=== PATIENT | male | born 1930 | race Caucasian/White ===

== ENCOUNTER → 2016-12-04 | Outpatient (CLI) | payer MEDICARE, BC ==
[~2016-12-04] MED LIST: ACET325S8 PO; AMIO200T PO; ASPI-99 PO; AZIT250T74 PO; BUME1TAB PO; CARV3.125 PO; CETI10 PO; COMMODE 3:1; DOCU1CAP39 PO; FLON0.053; LISI2.5T3 PO; METO25 PO; METR-1 PO; MILKSUS5 PO; POLY17S PO; POTA-243 PO; PRED10 PO; PROT40TA PO; ROSU5 PO; SALI1SPR8; SUPETAB30 PO; TAMS0.4C67 PO; ZOLP5TAB3 PO
--- NOTE | 2016-12-07 08:29 | RSPPFT ---
DATE OF PROCEDURE: 12/04/16 COMMENTS: The forced vital capacity, FEV1, FEV1/FVC ratio and FEF 25-75 are all normal. IMPRESSION: This is a normal spirometry
== END ==
LOC: HRSP 09:35
PROVIDERS: ATTEND Family Medicine
DX: R06.00 Dyspnea, unspecified (principal)
CPT/HCPCS: 94060; 94729

== ENCOUNTER 2017-12-27 21:38 | Inpatient (IN) ==
--- NOTE | 2017-12-27 22:54 | ED ---
HPI General Chief Complaint: Fall Stated Complaint: L leg/hip Time Seen by Provider: 12/27/17 22:09 Source: patient and family (Son) Mode of arrival: other (In the car. Son helped him. Patient is having hard time walking.) Limitations: no limitations History of Present Illness HPI Narrative: Male was in the [facility] when as per him his left hip just gave way and he fell. His son was there and said he was having hard time standing up and complaining of left hip pain. Patient denies hitting his head. He was also complaining of some numbness on that side of his hip. Vital signs were relatively stable. Patient had a glass of scotch before going to [facility]. His son drove him to the hospital. complaint: Reports fall Onset (ago): minute(s) Fall from: standing Fall witnessed: yes, by family Prolonged down time: no Related Data Home Medications Medication Instructions Recorded Confirmed acetaminophen [Tylenol] 650 mg PO Q4H PRN 12/27/17 12/27/17 aspirin [Aspir-81] 81 mg PO DAILY 12/27/17 12/27/17 diclofenac sodium [Voltaren] 2 g TOPICAL QID 12/27/17 12/27/17 fluticasone [Flonase Allergy 2 spray INTRANASAL DAILY 12/27/17 12/27/17 Relief] oxybutynin chloride 15 mg PO DAILY 12/27/17 12/27/17 rosuvastatin [Crestor] 10 mg PO DAILY 12/27/17 12/27/17 sodium chloride [Saline Nasal] 1 spray INTRANASAL Q4H 12/27/17 12/27/17 vit D3-folic [id number] 1 tab PO DAILY 12/27/17 12/27/17 zolpidem [Ambien] 2.5 mg PO DAILY PRN 12/27/17 12/27/17 Allergies Allergy/AdvReac Type Severity Reaction Status Date / Time penicillin G Allergy Severe HIVES Verified 12/27/17 22:15 Review of Systems ROS: all other systems reviewed are negative Musculoskeletal Reports limited range of motion [facility] Medical History Medical History History of prostate cancer (Acute) Hx of fall (Acute) Hx of myocardial infarction (Acute) Hyperlipidemia (Acute) Surgical History Surgical History Hx of CABG (Acute) Social History Social History Substance History: No History of Abuse and Active Abuse Second Hand Smoke Exposure: No Smoking Status: Former smoker Tobacco Type: Cigarettes How Often Do You Have a Drink Containing Alcohol: 4 or more times a week Hx Recent Travel: No Recent Travel in [facility] within the Last 8 Weeks: No Recent Out of Country Travel within the Last 8 Weeks: No Immunization History Tetanus Immunization: <5 Years Exam Narrative Exam Narrative: GENERAL: Awake, alert, elderly, mild distress SKIN: Focused skin assessment warm/dry. HEAD: Atraumatic. Normocephalic. EYES: Pupils equal and round. No scleral icterus. No injection or drainage. ENT: No nasal bleeding or discharge. Mucous membranes pink and moist. NECK: Trachea midline. No JVD. CARDIOVASCULAR: Regular rate and rhythm. No murmur appreciated. RESPIRATORY: No accessory muscle use. Clear to auscultation. Breath sounds equal bilaterally. GASTROINTESTINAL: Abdomen soft, non-tender, nondistended. Hepatic and splenic margins not palpable. MUSCULOSKELETAL: No obvious deformities. No clubbing. No cyanosis. No edema. NEUROLOGICAL: Awake and alert. No obvious cranial nerve deficits. Motor grossly within normal limits. Normal speech. Decreased range of motion at the left hip joint due to the pain. No leg length discrepancy PSYCHIATRIC: Appropriate mood and affect; insight and judgment normal. Course Initial Documented Vital Signs Temperature 97.5 F L 12/27/17 21:54 Pulse Rate 55 L 12/27/17 21:54 Respiratory Rate 18 12/27/17 21:54 Blood Pressure 176/81 H 12/27/17 21:54 Pulse Oximetry 97 12/27/17 21:54 Last Documented Vital Signs Temperature 97.6 F 12/30/17 04:00 Pulse Rate 64 12/30/17 04:00 Respiratory Rate 16 12/30/17 04:00 Blood Pressure 117/57 L 12/30/17 04:00 Pulse Oximetry 96 12/30/17 04:00 Medical Decision Making MDM Narrative Medical decision making narrative: 12:20 AM blood test results are back and within acceptable limit. Alcohol level is 75 which corresponds to the drink he had prior to going to [facility]. X-ray shows intertrochanter hip fracture. Patient will be admitted to the hospitalist. Medical Screen Exam Complete: Yes Emergency Medical Condition: Yes Lab Data Result diagrams: 12/27/17 22:50 12/29/17 06:44 Lab Results 12/27/17 12/27/17 12/27/17 Range/Units 22:50 22:50 22:50 WBC 8.7 (4.0-11.0) th/mm3 RBC 4.47 L (4.50-5.90) mil/mm3 Hgb 14.2 (13.0-17.0) gm/dL Hct 42.0 (39.0-51.0) % MCV 93.8 (80.0-100.0) fL MCH 31.8 (27.0-34.0) pg MCHC 33.9 (32.0-36.0) % RDW 13.3 (11.6-17.2) % Plt Count 133 L (150-450) th/mm3 MPV 8.7 (7.0-11.0) fL Neut % (Auto) 56.2 (16.0-70.0) % Lymph % (Auto) 31.4 (9.0-44.0) % Webb % (Auto) 9.0 H (0.0-8.0) % Eos % (Auto) 3.1 (0.0-4.0) % Baso % (Auto) 0.3 (0.0-2.0) % Neut # (Auto) 4.9 (1.8-7.7) th/mm3 Lymph # (Auto) 2.7 (1.0-4.8) th/mm3 Webb # (Auto) 0.8 (0.0-0.9) th/mm3 Eos # (Auto) 0.3 (0.0-0.4) th/mm3 Baso # (Auto) 0.0 (0.0-0.2) th/mm3 WBC Differential . Differential Comment Auto diff final PT 9.9 (9.8-11.6) sec INR 1.0 Ratio APTT 25.1 (24.3-30.1) sec Sodium 143 (136-145) meq/L Potassium 4.2 (3.5-5.1) meq/L Chloride 110 H (98-107) meq/L Carbon Dioxide 25.3 (21.0-32.0) meq/L Anion Gap 8 (5-15) meq/L BUN 23 H (7-18) mg/dL Creatinine 1.43 H (0.60-1.30) mg/dL Estimated GFR 47 L (>89) mL/min Random Glucose 114 H (74-106) mg/dL Calcium 8.6 (8.5-10.1) mg/dL Phosphorus (2.5-4.9) mg/dL Magnesium (1.5-2.5) mg/dL Total Creatine Kinase 78 (39-308) U/L Troponin I Less than 0.02 L (0.02-0.05) ng/mL Urine Color (Yellw/Straw) Urine Clarity (Clear) Urine pH (5.0-8.5) Ur Specific [place] (1.002-1.035) Urine Protein (Neg-Trace) mg/dL Urine Glucose (UA) (Negative) mg/dL Urine Ketones (Negative) mg/dL Urine Occult Blood (Negative) Urine Nitrate (Negative) Urine Bilirubin (Negative) Urine Urobilinogen (Less than 2) mg/dL Ur Leukocyte Esterase (Negative) Urine RBC (0-3) /hpf Urine WBC (0-5) /hpf Hyaline Casts (0-3) /lpf Urine Mucus (Occasional) /lpf Micro UA Comment Ur Microscopic Review Urine Culture Comments Serum Alcohol 76 H (0-5) mg/dL 12/27/17 12/28/17 12/28/17 Range/Units 23:45 04:04 11:08 WBC (4.0-11.0) th/mm3 RBC (4.50-5.90) mil/mm3 Hgb (13.0-17.0) gm/dL Hct (39.0-51.0) % MCV (80.0-100.0) fL MCH (27.0-34.0) pg MCHC (32.0-36.0) % RDW (11.6-17.2) % Plt Count (150-450) th/mm3 MPV (7.0-11.0) fL Neut % (Auto) (16.0-70.0) % Lymph % (Auto) (9.0-44.0) % Webb % (Auto) (0.0-8.0) % Eos % (Auto) (0.0-4.0) % Baso % (Auto) (0.0-2.0) % Neut # (Auto) (1.8-7.7) th/mm3 Lymph # (Auto) (1.0-4.8) th/mm3 Webb # (Auto) (0.0-0.9) th/mm3 Eos # (Auto) (0.0-0.4) th/mm3 Baso # (Auto) (0.0-0.2) th/mm3 WBC Differential Differential Comment PT (9.8-11.6) sec INR Ratio APTT (24.3-30.1) sec Sodium (136-145) meq/L Potassium (3.5-5.1) meq/L Chloride (98-107) meq/L Carbon Dioxide (21.0-32.0) meq/L Anion Gap (5-15) meq/L BUN (7-18) mg/dL Creatinine (0.60-1.30) mg/dL Estimated GFR (>89) mL/min Random Glucose (74-106) mg/dL Calcium (8.5-10.1) mg/dL Phosphorus 2.8 (2.5-4.9) mg/dL Magnesium (1.5-2.5) mg/dL Total Creatine Kinase 58 (39-308) U/L Troponin I 0.04 0.04 (0.02-0.05) ng/mL Urine Color Yellow (Yellw/Straw) Urine Clarity Hazy H (Clear) Urine pH 5.0 (5.0-8.5) Ur Specific [place] 1.011 (1.002-1.035) Urine Protein Negative (Neg-Trace) mg/dL Urine Glucose (UA) Negative (Negative) mg/dL Urine Ketones Negative (Negative) mg/dL Urine Occult Blood Negative (Negative) Urine Nitrate Negative (Negative) Urine Bilirubin Negative (Negative) Urine Urobilinogen Less than 2 (Less than 2) mg/dL Ur Leukocyte Esterase Negative (Negative) Urine RBC 2 (0-3) /hpf Urine WBC 1 (0-5) /hpf Hyaline Casts 5 (0-3) /lpf Urine Mucus Few H (Occasional) /lpf Micro UA Comment Culture not ind Ur Microscopic Review Not Reportable Urine Culture Comments Culture not ind Serum Alcohol (0-5) mg/dL 12/29/17 Range/Units 06:44 WBC (4.0-11.0) th/mm3 RBC (4.50-5.90) mil/mm3 Hgb (13.0-17.0) gm/dL Hct (39.0-51.0) % MCV (80.0-100.0) fL MCH (27.0-34.0) pg MCHC (32.0-36.0) % RDW (11.6-17.2) % Plt Count (150-450) th/mm3 MPV (7.0-11.0) fL Neut % (Auto) (16.0-70.0) % Lymph % (Auto) (9.0-44.0) % Webb % (Auto) (0.0-8.0) % Eos % (Auto) (0.0-4.0) % Baso % (Auto) (0.0-2.0) % Neut # (Auto) (1.8-7.7) th/mm3 Lymph # (Auto) (1.0-4.8) th/mm3 Webb # (Auto) (0.0-0.9) th/mm3 Eos # (Auto) (0.0-0.4) th/mm3 Baso # (Auto) (0.0-0.2) th/mm3 WBC Differential Differential Comment PT (9.8-11.6) sec INR Ratio APTT (24.3-30.1) sec Sodium 139 (136-145) meq/L Potassium 3.9 (3.5-5.1) meq/L Chloride 106 (98-107) meq/L Carbon Dioxide 25.0 (21.0-32.0) meq/L Anion Gap 8 (5-15) meq/L BUN 19 H (7-18) mg/dL Creatinine 1.12 (0.60-1.30) mg/dL Estimated GFR 62 L (>89) mL/min Random Glucose 115 H (74-106) mg/dL Calcium 8.4 L (8.5-10.1) mg/dL Phosphorus (2.5-4.9) mg/dL Magnesium 2.2 (1.5-2.5) mg/dL Total Creatine Kinase (39-308) U/L Troponin I (0.02-0.05) ng/mL Urine Color (Yellw/Straw) Urine Clarity (Clear) Urine pH (5.0-8.5) Ur Specific [place] (1.002-1.035) Urine Protein (Neg-Trace) mg/dL Urine Glucose (UA) (Negative) mg/dL Urine Ketones (Negative) mg/dL Urine Occult Blood (Negative) Urine Nitrate (Negative) Urine Bilirubin (Negative) Urine Urobilinogen (Less than 2) mg/dL Ur Leukocyte Esterase (Negative) Urine RBC (0-3) /hpf Urine WBC (0-5) /hpf Hyaline Casts (0-3) /lpf Urine Mucus (Occasional) /lpf Micro UA Comment Ur Microscopic Review Urine Culture Comments Serum Alcohol (0-5) mg/dL Imaging Data Radiologist's impression: Femur X-Ray 12/27/17 22:36 CONCLUSION: Intertrochanteric fracture of the left hip. Pelvis X-Ray 12/27/17 22:36 CONCLUSION: Intertrochanteric fracture of the left hip Head CT 12/27/17 22:37 CONCLUSION: 1. No acute findings in the brain. 2. Bilateral lacunar infarcts and areas of decreased attenuation in the supratentorial white matter suggesting ischemic etiology. . Hip X-Ray 12/29/17 00:00 CONCLUSION: Satisfactory operative appearance Discharge Plan Discharge Disposition Patient Disposition: 30 Still Patient Physicians Team ED Provider: Lopez Horn Primary Care Provider: Jose Rodas Attending Provider: Jose Rodas Other Providers: Ashley Correia ; Lizabeth Mejia Status ED Status: Left Department Discharge Information Discharge Date/Time: 12/28/17 01:08
--- NOTE | 2017-12-27 22:59 | XR ---
EXAM DATE: 12/27/2017 10:56 PM EDT AGE/SEX: 87 years / Male INDICATIONS: Pain from fall on left side, CLINICAL DATA: This is the patient's initial encounter. Patient reports that signs and symptoms have been present for 1 day and indicates a pain score of 10/10. MEDICAL/SURGICAL HISTORY: None. . Pelvic surgery, unspecified. COMPARISON: [facility], XR HIP W/ AP PELVIS, BILATERAL, 08/12/2014. . FINDINGS: Examination of the pelvis demonstrates intertrochanteric fracture of the left hip. 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 Prosthetic seeds project over the pubic symphysis. CONCLUSION: Intertrochanteric fracture of the left hip Electronically signed by: Carlos Alberto Anthony MD 12/27/2017 10:58 PM EDT
[2017-12-27] MEDS ORDERED: Sodium Chlor 0.9% Inj 500 ML IV.SIG SCH (23:00)
--- NOTE | 2017-12-27 23:00 | XR ---
EXAM DATE: 12/27/2017 10:57 PM EDT AGE/SEX: 87 years / Male INDICATIONS: Pain from fall on left side. CLINICAL DATA: This is the patient's initial encounter. Patient reports that signs and symptoms have been present for 1 day and indicates a pain score of 10/10. MEDICAL/SURGICAL HISTORY: None. None. COMPARISON: [facility] [place], PELVIS AP 1V, 12/27/2017. . FINDINGS: Intratrochanteric fracture of the left hip. The femoral acetabular articulation is intact. CONCLUSION: Intertrochanteric fracture of the left hip. Electronically signed by: Carlos Alberto Anthony MD 12/27/2017 10:59 PM EDT
[2017-12-27 23:05] LABS: Baso % (Auto) 0.3 % (0.0-2.0); Eos # (Auto) 0.3 th/mm3 (0.0-0.4); Eos % (Auto) 3.1 % (0.0-4.0); Hemoglobin 14.2 gm/dL (13.0-17.0); Lymph # (Auto) 2.7 th/mm3 (1.0-4.8); Lymph % (Auto) 31.4 % (9.0-44.0); Mean Corpuscular HGB Conc 33.9 % (32.0-36.0); Mean Corpuscular Hemoglobin 31.8 pg (27.0-34.0); Mean Corpuscular Volume 93.8 fL (80.0-100.0); Mean Platelet Volume 8.7 fL (7.0-11.0); Mono # (Auto) 0.8 th/mm3 (0.0-0.9); Neut # (Auto) 4.9 th/mm3 (1.8-7.7); Neut % (Auto) 56.2 % (16.0-70.0); Platelet Count 133 th/mm3 (150-450); Red Blood Count 4.47 mil/mm3 (4.50-5.90); Red Cell Distribution Width 13.3 % (11.6-17.2); White Blood Count 8.7 th/mm3 (4.0-11.0)
[2017-12-27 23:14] LABS: Activated Partial Thrombo Time 25.1 sec (24.3-30.1); Prothrombin Time 9.9 sec (9.8-11.6)
--- NOTE | 2017-12-27 23:24 | CT ---
EXAM DATE: 12/27/2017 11:06 PM EDT AGE/SEX: 87 years / Male INDICATIONS: Trauma; fall. CLINICAL DATA: This is the patient's initial encounter. Patient reports that signs and symptoms have been present for 1 day and indicates a pain score of 4/10. MEDICAL/SURGICAL HISTORY: Myocardial infarction. Carcinoma, prostatic. CABG. RADIATION DOSE: 52.13 CTDI (mGy) COMPARISON: No prior exams available for comparison. TECHNIQUE: CT of the head without contrast. Using automated exposure control and adjustment of the mA and/or kV according to patient size, radiation dose was kept as low as reasonably achievable to ob tain optimal diagnostic quality images. DICOM format image data is available electronically for revi ew and comparison. FINDINGS: Cerebrum: The ventricles are normal for age. Lacunar infarcts are present in the posterior limb of t he right internal capsule and in the left superior striatum. There is decreased attenuation in the wh ite matter of the mid convexity frontal region bilaterally and about the occipital horns suggesting i schemic demyelination. No evidence of midline shift, mass lesion, hemorrhage or acute infarction. No extraaxial fluid collections are seen. Posterior Fossa: The cerebellum and brainstem are intact. The 4th ventricle is midline. The cerebe llopontine angle is unremarkable. Extracranial: The visualized portion of the orbits is intact. Skull: The calvaria is intact. No evidence of skull fracture. CONCLUSION: 1. No acute findings in the brain. 2. Bilateral lacunar infarcts and areas of decreased attenuation in the supratentorial white matter suggesting ischemic etiology. . Electronically signed by: Ashwin Monreal MD 12/27/2017 11:23 PM EDT
[2017-12-27 23:35] LABS: Anion Gap 8 meq/L (5-15); Blood Urea Nitrogen 23 mg/dL (7-18); Calcium 8.6 mg/dL (8.5-10.1); Carbon Dioxide 25.3 meq/L (21.0-32.0); Chloride 110 meq/L (98-107); Glomerular Filtration Rate 47 mL/min (>89); Glucose,Random 114 mg/dL (74-106); Potassium 4.2 meq/L (3.5-5.1); Sodium 143 meq/L (136-145)
[2017-12-27] MEDS ORDERED: Morphine Sulfate Inj 2 MG/ML Vial IV.PUSH ONE (23:36)
[2017-12-28 00:02] LABS: Alcohol 76 mg/dL (0-5); Creatine Kinase 78 U/L (39-308)
[2017-12-28] MEDS ORDERED: Naloxone Inj 0.4 MG/ML Vial IV.PUSH PRN (00:20)
[2017-12-28] MEDS ORDERED: Bisacodyl 10 MG Supp RECTAL PRN (00:20)
[2017-12-28] MEDS: Sod Chloride 0.9% Inj 1,000 ML IV.CONT SCH ×2 (00:25→17:47)
[2017-12-28 00:53] LABS: Bilirubin,Urine Negative (Negative); Clarity,Urine Hazy (Clear); Color,Urine Yellow (Yellw/Straw); Glucose,Urine (UA) Negative (Negative); Hyaline Casts,Urine 5 /lpf (0-3); Leukocyte Esterase,Urine Negative (Negative); Mucus,Urine Few /lpf (Occasional); Nitrite,Urine Negative (Negative); Specific Gravity,Urine 1.011 (1.002-1.035)
[2017-12-28] MEDS ORDERED: Sodium Chlor 0.9% Inj 500 ML IV.CONT ONE (02:45)
[2017-12-28] MEDS ORDERED: Chlorhexidine Gluconate 2% 1 Pack (2 Cloths) TOPICAL ONE (02:45)
--- NOTE | 2017-12-28 05:22 | P.HPIM ---
History of Present Illness Primary Care Physician: Jose Rodas DO History of Present Illness: 87-year-old male with a history of CAD status post CABG, hyperlipidemia who presents following fall in [facility] around 4 PM. Patient says he is not sure if he fell or if his hip gave out. He does not remember falling. He denies any chest pains or palpitations. Denies any lightheadedness or dizziness .. Reports extreme constant dull pain in left hip, worse with movement, unable to put weight on left hip. Patient did drink a glass of scotch prior to going to [facility] Inpatient Certification: I certify that the inpatient services were ordered in accordance with Medicare regulations governing the order. This includes certification that hospital inpatient services are reasonable and necessary and in the case of services not specified as inpatient-only under 42 CFR 419.22(n), that they are appropriately provided as inpatient services in accordance to with the 2-midnight benchmark under 43 CFR 412.3(e) Estimated Total Length of Stay (Days): 3 Plans for Post Hospital Care: Not yet determined Review of Systems All other systems reviewed negative except as stated in HPI PMFSH - History History Provided By: Patient, Family Member - Medical History Medical History: Medical History (Last Reviewed 12/28/17 @ 05:17 by Saúl Hernandez MD) History of prostate cancer Hx of fall Hx of myocardial infarction Hyperlipidemia - Surgical History Surgical History: Surgical History (Last Reviewed 12/28/17 @ 05:15 by Saúl Hernandez MD) Hx of CABG - Family History Family History: Family History (Last Updated 12/28/17 @ 05:15 by Saúl Hernandez MD) Mother Unknown family medical history Father Motor vehicle accident (victim) - Tobacco History Second Hand Smoke Exposure: No Smoking Status: Former smoker Tobacco Type: Cigarettes - Alcohol History How Often Do You Have a Drink Containing Alcohol: Never - Substance Use History Substance History: No History of Abuse - Travel History Recent Travel in the [place] Within the Last 8 Weeks: No Recent Travel Out of the Country Within the Last 8 Weeks: No - Immunization History Tetanus Immunization: Unsure Hx Influenza Vaccine This Season: No Medications and Allergies Active Medications: Active Medications Al Hydroxide/Mg Hydroxide (Milk Of Mati Liq) 30 ml PO Q12H PRN PRN Reason: Mild Constipation Atorvastatin Calcium (Lipitor) 20 mg PO DAILY SILVIA Bisacodyl (Dulcolax Supp) 10 mg RECTAL DAILY PRN PRN Reason: SEVERE CONSITIPATION Sodium Chloride (Ns Inj) 500 mls @ 0 mls/hr IV[facility]SIG [facility] Last Infusion: 12/28/17 01:06 Dose: Infused Sodium Chloride (Ns Inj) 1,000 mls @ 100 mls/hr IV.CONT .Q10H SILVIA Last Admin: 12/28/17 00:25 Dose: 100 mls/hr Lactated Ringer's (Lr 1000 Ml Inj) 1,000 mls @ 30 mls/hr IV.CONT .Q24H ONE Stop: 12/29/17 02:44 Sodium Chloride (Ns Inj) 500 mls @ 30 mls/hr IV.CONT .[id number] ONE Stop: 12/28/17 19:24 Lactulose (Lactulose Liq) 30 ml PO DAILY PRN PRN Reason: SEVERE CONSITIPATION Naloxone HCl (Narcan Inj) 0.4 mg IV.PUSH UNSCH PRN PRN Reason: SEE LABEL COMMENTS Sennosides (Senokot) 17.2 mg PO Q12H PRN PRN Reason: Moderate Constipation Sodium Chloride (Ns Flush) 2 ml IV.FLUSH PRN PRN PRN Reason: FLUSH AFTER USING IV ACCESS Allergies Allergy/AdvReac Type Severity Reaction Status Date / Time penicillin G Allergy Severe HIVES Verified 12/27/17 22:15 Home Medications Medication Instructions Recorded Confirmed Type acetaminophen [Tylenol] 650 mg PO Q4H PRN 12/27/17 12/27/17 History aspirin [Aspir-81] 81 mg PO DAILY 12/27/17 12/27/17 History diclofenac sodium [Voltaren] 2 g TOPICAL QID 12/27/17 12/27/17 History fluticasone [Flonase Allergy 2 spray INTRANASAL DAILY 12/27/17 12/27/17 History Relief] oxybutynin chloride 15 mg PO DAILY 12/27/17 12/27/17 History rosuvastatin [Crestor] 10 mg PO DAILY 12/27/17 12/27/17 History sodium chloride [Saline Nasal] 1 spray INTRANASAL Q4H 12/27/17 12/27/17 History vit D3-folic [id number] 1 tab PO DAILY 12/27/17 12/27/17 History zolpidem [Ambien] 2.5 mg PO DAILY PRN 12/27/17 12/27/17 History Exam Vital signs: Vital Signs 12/27/17 21:54 12/27/17 21:59 12/28/17 02:00 Temperature 97.5 F L Pulse Rate 55 L 70 Respiratory Rate 18 Blood Pressure 176/81 H Pulse Oximetry 97 100 12/28/17 04:00 Temperature 98.2 F Pulse Rate 62 Respiratory Rate 16 Blood Pressure 138/91 H Pulse Oximetry 98 Intake & Output 12/27/17 12/27/17 12/28/17 06:59 18:59 06:59 Intake Total 500 / 500 Balance 500 / 500 Weight 77.2 kg Intake: IV 500 / 500 NS Inj 500 ML @ Wide Open IV. 500 / 500 SIG BOLUS SILVIA Rx#:[id number] Other: Date of Last Bowel Movement 12/27/17 Narrative: GENERAL: Patient lying in bed. Appears comfortable. SKIN: Warm and dry. HEAD: Atraumatic. Normocephalic. EYES: Pupils equal and round. No scleral icterus. No injection or drainage. ENT: No nasal bleeding or discharge. Mucous membranes pink and moist. NECK: Trachea midline. No JVD. CARDIOVASCULAR: Regular rate and rhythm. RESPIRATORY: No accessory muscle use. Clear to auscultation. Breath sounds equal bilaterally. GASTROINTESTINAL: Abdomen soft, non-tender, nondistended. Hepatic and splenic margins not palpable. MUSCULOSKELETAL: Extremities without clubbing, cyanosis, or edema. No obvious deformities. NEUROLOGICAL: Awake and alert. No obvious cranial nerve deficits. Motor grossly within normal limits. Five out of 5 muscle strength in the arms. Unable to move left leg due to pain. Can wiggle toes on left foot.. Normal speech. PSYCHIATRIC: Appropriate mood and affect; insight and judgment normal. Results - Labs CBC & Chem 7: 12/27/17 22:50 12/27/17 22:50 Labs: Short CBC 12/27/17 Range/Units 22:50 WBC 8.7 (4.0-11.0) th/mm3 Hgb 14.2 (13.0-17.0) gm/dL Hct 42.0 (39.0-51.0) % Plt Count 133 L (150-450) th/mm3 BMP 12/27/17 22:50 Sodium 143 Potassium 4.2 Chloride 110 H Carbon Dioxide 25.3 BUN 23 H Creatinine 1.43 H Calcium 8.6 Cardiac Enzymes 12/27/17 Range/Units 22:50 Total Creatine Kinase 78 (39-308) U/L Troponin I Less than 0.02 L (0.02-0.05) ng/mL Urine 12/27/17 Range/Units 23:45 Urine Color Yellow (Yellw/Straw) Urine Clarity Hazy H (Clear) Urine pH 5.0 (5.0-8.5) Ur Specific [place] 1.011 (1.002-1.035) Urine Protein Negative (Neg-Trace) mg/dL Urine Glucose (UA) Negative (Negative) mg/dL - Imaging Impressions Femur X-Ray 12/27/17 22:36 CONCLUSION: Intertrochanteric fracture of the left hip. Pelvis X-Ray 12/27/17 22:36 CONCLUSION: Intertrochanteric fracture of the left hip Head CT 12/27/17 22:37 CONCLUSION: 1. No acute findings in the brain. 2. Bilateral lacunar infarcts and areas of decreased attenuation in the supratentorial white matter suggesting ischemic etiology. . Caprini VTE Risk Assessment Caprini VTE Risk Assessment: Moderate/High Risk (score >= 2) Caprini Risk Assessment Model: Point Value = 1 Point Value = 2 Point Value = 3 Point Value = 5 Age 41-60 Minor surgery BMI > 25 kg/m2 Swollen legs Varicose veins or History of unexplained or recurrent spontaneous Oral contraceptives or hormone replacement Sepsis (< 1 month) Serious lung disease, including pneumonia (< 1 month) Abnormal pulmonary function Acute myocardial infarction Congestive heart failure (< 1 month) History of inflammatory bowel disease Medical patient at bed rest Age 61-74 Arthroscopic surgery Major open surgery (> 45 min) Laparoscopic surgery (> 45 min) Malignancy Confined to bed (> 72 hours) Immobilizing plaster cast Central venous access Age >= 75 History of VTE Family history of VTE Factor V Leiden Prothrombin [id number] Lupus anticoagulant Anticardiolipin antibodies Elevated serum homocysteine Heparin-induced thrombocytopenia Other congenital or acquired thrombophilia Stroke (< 1 month) Elective arthroplasty Hip, pelvis, or leg fracture Acute spinal cord injury (< 1 month) Prophylaxis Regimen: Total Risk Factor Score Risk Level Prophylaxis Regimen 0-1 Low Early ambulation 2 Moderate Order ONE of the following: *Sequential Compression Device (SCD) *Heparin 5000 units SQ BID 3-4 Higher Order ONE of the following medications: *Heparin 5000 units SQ TID *Enoxaparin/Lovenox 40 mg SQ daily (WT < 150 kg, CrCl > 30 mL/min) *Enoxaparin/Lovenox 30 mg SQ daily (WT < 150 kg, CrCl > 10-29 mL/min) *Enoxaparin/Lovenox 30 mg SQ BID (WT < 150 kg, CrCl > 30 mL/min) AND/OR *Sequential Compression Device (SCD) 5 or more Highest Order ONE of the following medications: *Heparin 5000 units SQ TID (Preferred with Epidurals) *Enoxaparin/Lovenox 40 mg SQ daily (WT < 150 kg, CrCl > 30 mL/min) *Enoxaparin/Lovenox 30 mg SQ daily (WT < 150 kg, CrCl > 10-29 mL/min) *Enoxaparin/Lovenox 30 mg SQ BID (WT < 150 kg, CrCl > 30 mL/min) AND *Sequential Compression Device (SCD) Assessment and Plan - Plan //Status post fall Possibly mechanical fall however patient with bigeminy and trigeminy on telemetry. Troponin negative x1. We will continue to trend troponins. 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 Consult //Alcohol intoxication. Alcohol level is 76 on admission. We will continue to monitor. Acute kidney injury with creatinine 1.4 from normal baseline. Continue to monitor on IV Discussed Condition With: Patient, nurse, ED physician H&P: Quality - VTE Deep Vein Thrombosis/Pulmonary Embolism Present on Admission: No
--- NOTE | 2017-12-28 08:32 | P.CONOP ---
[facility] Orthopedics Consult Note - [facility] Consult date: 12/28/17 Requesting physician: Saúl Hernandez Consult reason: fracture Chief complaint: Fall, hip fracture Narrative: 87-year-old very pleasant male with a past cardiac medical history including a CABG in 2014 presented to [facility] emergency department late last evening after a fall incident. Patient states he was in [employer] with his son when either his leg "gave out" and/or he possibly became dizzy and fell onto his left hip. Patient is unsure of the cause of the fall. Patient had immediate left hip pain and had an inability to walk. After evaluation and radiographs it was found that the patient sustained a left intertrochanteric hip fracture. Patient is not currently anticoagulated. Patient has been n.p.o. Patient previous orthopedic injuries includes a right AC joint separation several years ago. No other previous orthopedic surgeries. Patient previously ambulated unassisted. No other musculoskeletal injuries identified. Review of Systems Well outlined in medical record PMFSH - History History Provided By: Patient, Family Member - Medical History Medical History: Medical History (Last Reviewed 12/28/17 @ 07:[address]) History of prostate cancer Hx of fall Hx of myocardial infarction Hyperlipidemia - Surgical History Surgical History: Surgical History (Last Reviewed 12/28/17 @ 07:[address]) Hx of CABG - Family History Family History: Family History (Last Updated 12/28/17 @ 05:15 by Saúl Hernandez MD) Mother Unknown family medical history Father Motor vehicle accident (victim) - Tobacco History Second Hand Smoke Exposure: No Smoking Status: Former smoker Tobacco Type: Cigarettes - Alcohol History How Often Do You Have a Drink Containing Alcohol: Never - Substance Use History Substance History: No History of Abuse - Travel History Recent Travel in the [place] Within the Last 8 Weeks: No Recent Travel Out of the Country Within the Last 8 Weeks: No - Immunization History Tetanus Immunization: Unsure Hx Influenza Vaccine This Season: No Medications and Allergies Active Medications: Active Medications Al Hydroxide/Mg Hydroxide (Milk Of Mati Liq) 30 ml PO Q12H PRN PRN Reason: Mild Constipation Aspirin (Ecotrin) 81 mg PO DAILY SILVIA Atorvastatin Calcium (Lipitor) 20 mg PO DAILY SILVIA Bisacodyl (Dulcolax Supp) 10 mg RECTAL DAILY PRN PRN Reason: SEVERE CONSITIPATION Sodium Chloride (Ns Inj) 500 mls @ 0 mls/hr IV.SIG BOLUS SILVIA Last Infusion: 12/28/17 01:06 Dose: Infused Sodium Chloride (Ns Inj) 1,000 mls @ 100 mls/hr IV.CONT .Q10H SILVIA Last Admin: 12/28/17 00:25 Dose: 100 mls/hr Lactated Ringer's (Lr 1000 Ml Inj) 1,000 mls @ 30 mls/hr IV.CONT .Q24H ONE Stop: 12/29/17 02:44 Sodium Chloride (Ns Inj) 500 mls @ 30 mls/hr IV.CONT .[id number] ONE Stop: 12/28/17 19:24 Lactulose (Lactulose Liq) 30 ml PO DAILY PRN PRN Reason: SEVERE CONSITIPATION Naloxone HCl (Narcan Inj) 0.4 mg IV.PUSH UNSCH PRN PRN Reason: SEE LABEL COMMENTS Sennosides (Senokot) 17.2 mg PO Q12H PRN PRN Reason: Moderate Constipation Sodium Chloride (Ns Flush) 2 ml IV.FLUSH PRN PRN PRN Reason: FLUSH AFTER USING IV ACCESS Allergies Allergy/AdvReac Type Severity Reaction Status Date / Time penicillin G Allergy Severe HIVES Verified 12/27/17 22:15 Home Medications Medication Instructions Recorded Confirmed Type acetaminophen [Tylenol] 650 mg PO Q4H PRN 12/27/17 12/27/17 History aspirin [Aspir-81] 81 mg PO DAILY 12/27/17 12/27/17 History diclofenac sodium [Voltaren] 2 g TOPICAL QID 12/27/17 12/27/17 History fluticasone [Flonase Allergy 2 spray INTRANASAL DAILY 12/27/17 12/27/17 History Relief] oxybutynin chloride 15 mg PO DAILY 12/27/17 12/27/17 History rosuvastatin [Crestor] 10 mg PO DAILY 12/27/17 12/27/17 History sodium chloride [Saline Nasal] 1 spray INTRANASAL Q4H 12/27/17 12/27/17 History vit D3-folic [id number] 1 tab PO DAILY 12/27/17 12/27/17 History zolpidem [Ambien] 2.5 mg PO DAILY PRN 12/27/17 12/27/17 History Exam Vital signs: Vital Signs 12/27/17 21:54 12/27/17 21:59 12/28/17 02:00 Temperature 97.5 F L Pulse Rate 55 L 70 Respiratory Rate 18 Blood Pressure 176/81 H Pulse Oximetry 97 100 12/28/17 04:00 Temperature 98.2 F Pulse Rate 62 Respiratory Rate 16 Blood Pressure 138/91 H Pulse Oximetry 98 Intake & Output 12/27/17 12/28/17 12/28/17 18:59 06:59 18:59 Intake Total 500 / 500 Output Total 550 / 550 Balance -50 / -50 Weight 77.5 kg Intake: IV 500 / 500 NS Inj 500 ML @ Wide Open IV. 500 / 500 SIG BOLUS SILVIA Rx#:[id number] Output: Urine 550 / 550 Other: Date of Last Bowel Movement 12/27/17 Narrative: LLE: Tender to palpation over left hip region, range of motion not tested secondary to pain, leg is in external rotation, no calf pain, negative Homans sign, neurovascularly intact No other musculoskeletal injuries identified Results - Labs Result Diagrams: 12/27/17 22:50 12/27/17 22:50 Labs: Laboratory Results - last 24 hr 12/27/17 12/27/17 12/27/17 22:50 22:50 22:50 WBC 8.7 RBC 4.47 L Hgb 14.2 Hct 42.0 MCV 93.8 MCH 31.8 MCHC 33.9 RDW 13.3 Plt Count 133 L MPV 8.7 Neut % (Auto) 56.2 Lymph % (Auto) 31.4 [place] % (Auto) 9.0 H Eos % (Auto) 3.1 Baso % (Auto) 0.3 Neut # (Auto) 4.9 Lymph # (Auto) 2.7 [place] # (Auto) 0.8 Eos # (Auto) 0.3 Baso # (Auto) 0.0 WBC Differential . Differential Comment Auto diff final PT 9.9 INR 1.0 APTT 25.1 Sodium 143 Potassium 4.2 Chloride 110 H Carbon Dioxide 25.3 Anion Gap 8 BUN 23 H Creatinine 1.43 H Estimated GFR 47 L Random Glucose 114 H Calcium 8.6 Total Creatine Kinase 78 Troponin I Less than 0.02 L Urine Color Urine Clarity Urine pH Ur Specific [place] Urine Protein Urine Glucose (UA) Urine Ketones Urine Occult Blood Urine Nitrate Urine Bilirubin Urine Urobilinogen Ur Leukocyte Esterase Urine RBC Urine WBC Hyaline Casts Urine Mucus Micro UA Comment Ur Microscopic Review Urine Culture Comments Serum Alcohol 76 H 12/27/17 12/28/17 23:45 04:04 WBC RBC Hgb Hct MCV MCH MCHC RDW Plt Count MPV Neut % (Auto) Lymph % (Auto) [place] % (Auto) Eos % (Auto) Baso % (Auto) Neut # (Auto) Lymph # (Auto) [place] # (Auto) Eos # (Auto) Baso # (Auto) WBC Differential Differential Comment PT INR APTT Sodium Potassium Chloride Carbon Dioxide Anion Gap BUN Creatinine Estimated GFR Random Glucose Calcium Total Creatine Kinase Troponin I 0.04 Urine Color Yellow Urine Clarity Hazy H Urine pH 5.0 Ur Specific [place] 1.011 Urine Protein Negative Urine Glucose (UA) Negative Urine Ketones Negative Urine Occult Blood Negative Urine Nitrate Negative Urine Bilirubin Negative Urine Urobilinogen Less than 2 Ur Leukocyte Esterase Negative Urine RBC 2 Urine WBC 1 Hyaline Casts 5 Urine Mucus Few H Micro UA Comment Culture not ind Ur Microscopic Review Not Reportable Urine Culture Comments Culture not ind Serum Alcohol - Diagnostic results Imaging: Impressions Femur X-Ray 12/27/17 22:36 CONCLUSION: Intertrochanteric fracture of the left hip. Pelvis X-Ray 12/27/17 22:36 CONCLUSION: Intertrochanteric fracture of the left hip Head CT 12/27/17 22:37 CONCLUSION: 1. No acute findings in the brain. 2. Bilateral lacunar infarcts and areas of decreased attenuation in the supratentorial white matter suggesting ischemic etiology. . Assessment and Plan - Assessment and Plan The findings were discussed with the patient and his son. Recommendations are given for surgical management, left intertrochanteric hip fixation, to allow for mobilization and pain control. The nature of the planned surgical procedure , the risks, the benefits as well as postoperative expectations have been discussed with the patient in detail. In addition, alternatives of the treatment and risks were discussed. The patient acknowledges full understanding and consents to it. Patient has been marked. Consent has been signed The patient will require cardiac clearance therefore the procedure will most likely not be done until later today and/or tomorrow morning. Patient is okay to have breakfast. N.p.o. after breakfast. Ice to affected area. Written by Ayesha Dia (Ashley), acting as scribe for Dr. Ashley Correia on December 28, 2017 at 0831.
[2017-12-28] MEDS ORDERED: Zolpidem Tartrate 5 MG Tablet PO PRN (09:08)
[2017-12-28] MEDS ORDERED: amLODIPine 5 MG Tablet PO SCH (09:30)
--- NOTE | 2017-12-28 09:32 | P.PN ---
Subjective Interval history: Follow up for intertrochanteric fracture of the left hip due to mechanical fall , CAD. Patient is currently doing well. Son is at bedside. Patient denies any chest pain, shortness of breath, fever or chills. He is waiting for cardiology clearance before any surgical intervention. He follows up with Dr. Mejia. Physical Exam Vital signs: Vital Signs 12/27/17 21:54 12/27/17 21:59 12/28/17 02:00 Temperature 97.5 F L Pulse Rate 55 L 70 Respiratory Rate 18 Blood Pressure 176/81 H Pulse Oximetry 97 100 12/28/17 04:00 12/28/17 08:00 Temperature 98.2 F 97.5 F L Pulse Rate 62 60 Respiratory Rate 16 16 Blood Pressure 138/91 H 176/81 H Pulse Oximetry 98 96 Intake & Output 12/27/17 12/28/17 12/28/17 18:59 06:59 18:59 Intake Total 500 / 500 Output Total 550 / 550 Balance -50 / -50 Weight 77.5 kg Intake: IV 500 / 500 NS Inj 500 ML @ Wide Open IV. 500 / 500 SIG BOLUS SILVIA Rx#:[id number] Output: Urine 550 / 550 Other: Date of Last Bowel Movement 12/27/17 Narrative: GENERAL: Alert, oriented x3, NAD. SKIN: Warm and dry. HEAD: Normocephalic. EYES: No scleral icterus. No injection or drainage. NECK: Supple, trachea midline. No JVD or lymphadenopathy. CARDIOVASCULAR: Regular rate and rhythm without murmurs, gallops, or rubs. RESPIRATORY: Breath sounds equal bilaterally. No accessory muscle use. GASTROINTESTINAL: Abdomen soft, non-tender, nondistended. MUSCULOSKELETAL: No cyanosis, or edema. Pain on movement of left lower extremity. BACK: Nontender without obvious deformity. No CVA tenderness. Results - Labs CBC & Chem 7: 12/27/17 22:50 12/27/17 22:50 Laboratory Results - last 24 hr 12/27/17 12/27/17 12/27/17 22:50 22:50 22:50 WBC 8.7 RBC 4.47 L Hgb 14.2 Hct 42.0 MCV 93.8 MCH 31.8 MCHC 33.9 RDW 13.3 Plt Count 133 L MPV 8.7 Neut % (Auto) 56.2 Lymph % (Auto) 31.4 [place] % (Auto) 9.0 H Eos % (Auto) 3.1 Baso % (Auto) 0.3 Neut # (Auto) 4.9 Lymph # (Auto) 2.7 [place] # (Auto) 0.8 Eos # (Auto) 0.3 Baso # (Auto) 0.0 WBC Differential . Differential Comment Auto diff final PT 9.9 INR 1.0 APTT 25.1 Sodium 143 Potassium 4.2 Chloride 110 H Carbon Dioxide 25.3 Anion Gap 8 BUN 23 H Creatinine 1.43 H Estimated GFR 47 L Random Glucose 114 H Calcium 8.6 Total Creatine Kinase 78 Troponin I Less than 0.02 L Urine Color Urine Clarity Urine pH Ur Specific [place] Urine Protein Urine Glucose (UA) Urine Ketones Urine Occult Blood Urine Nitrate Urine Bilirubin Urine Urobilinogen Ur Leukocyte Esterase Urine RBC Urine WBC Hyaline Casts Urine Mucus Micro UA Comment Ur Microscopic Review Urine Culture Comments Serum Alcohol 76 H 12/27/17 12/28/17 23:45 04:04 WBC RBC Hgb Hct MCV MCH MCHC RDW Plt Count MPV Neut % (Auto) Lymph % (Auto) [place] % (Auto) Eos % (Auto) Baso % (Auto) Neut # (Auto) Lymph # (Auto) [place] # (Auto) Eos # (Auto) Baso # (Auto) WBC Differential Differential Comment PT INR APTT Sodium Potassium Chloride Carbon Dioxide Anion Gap BUN Creatinine Estimated GFR Random Glucose Calcium Total Creatine Kinase Troponin I 0.04 Urine Color Yellow Urine Clarity Hazy H Urine pH 5.0 Ur Specific [place] 1.011 Urine Protein Negative Urine Glucose (UA) Negative Urine Ketones Negative Urine Occult Blood Negative Urine Nitrate Negative Urine Bilirubin Negative Urine Urobilinogen Less than 2 Ur Leukocyte Esterase Negative Urine RBC 2 Urine WBC 1 Hyaline Casts 5 Urine Mucus Few H Micro UA Comment Culture not ind Ur Microscopic Review Not Reportable Urine Culture Comments Culture not ind Serum Alcohol - Imaging Impressions Femur X-Ray 12/27/17 22:36 CONCLUSION: Intertrochanteric fracture of the left hip. Pelvis X-Ray 12/27/17 22:36 CONCLUSION: Intertrochanteric fracture of the left hip Head CT 12/27/17 22:37 CONCLUSION: 1. No acute findings in the brain. 2. Bilateral lacunar infarcts and areas of decreased attenuation in the supratentorial white matter suggesting ischemic etiology. . Assessment and Plan - Plan Mr. Peterson is a pleasant 87-year-old male with a history of coronary artery disease status post CABG in 2014 who presented to the emergency department on 12/27/2017 due to a fall where he sustained left hip fracture. Orthopedic surgery was consulted. Orthopedic surgery requests cardiology clearance before proceeding with surgical intervention. Acute mechanical fall Acute intertrochanteric fracture of the left hip -Appreciate orthopedic evaluation. Surgery likely tomorrow 12/29/2017. -Waiting for cardiology clearance. Patient is currently hemodynamically stable. -No acute cardiac issues. Patient should be able to undergo the surgical intervention. -Prior to CABG, his ejection fraction was 30-35%. His current ejection fraction should be better since he had revascularization. Coronary artery disease -CABG in 2014 -Continue aspirin 81 mg daily, rosuvastatin 10 mg p.o. daily Acute kidney injury - Creatinine 1.43 today. He is on IV fluid. - Will repeat BMP in the AM. Alcohol abuse - patient counselled. Full code. DVT prophylaxis when okay with orthopedic surgery.
[2017-12-28] MEDS: Morphine Sulfate Inj 2 MG/ML Vial IV.PUSH PRN ×4 (09:41→20:44)
--- NOTE | 2017-12-28 10:47 | P.HPFP ---
History of Present Illness Service: [facility] Primary Care Physician: Jose Rodas DO History of Present Illness: 87-year-old male with a history of CAD status post CABG, hyperlipidemia who [facility] Patient says he is not sure if he fell or if his hip gave out. He does not remember falling. He denies any chest pains or palpitations. Denies any lightheadedness or dizziness .. Reports extreme constant dull pain in left hip, worse with movement, unable to put weight on left hip. Patient did drink a glass of scotch prior to going to [facility] - Diagnosis (1) Closed left hip fracture (2) Hyperlipidemia LDL goal <100 (3) CAD (coronary atherosclerotic disease) Inpatient Certification: I certify that the inpatient services were ordered in accordance with Medicare regulations governing the order. This includes certification that hospital inpatient services are reasonable and necessary and in the case of services not specified as inpatient-only under 42 CFR 419.22(n), that they are appropriately provided as inpatient services in accordance to with the 2-midnight benchmark under 43 CFR 412.3(e) Estimated Total Length of Stay (Days): 3 Plans for Post Hospital Care: Not yet determined Review of Systems Constitutional: Denies anorexia, Denies body ache(s), Denies chills, Denies daytime sleepiness, Denies excessive sweating, Denies fatigue, Denies fever(s), Denies headache(s), Denies increased appetite, Denies lack of energy, Denies malaise, Denies night sweats, Denies weakness, Denies weight gain, Denies weight loss, Denies other Eyes: Denies blind spots, Denies blurry vision, Denies bulging eyes, Denies change in vision, Denies double vision, Denies discharge, Denies dry eyes, Denies floaters, Denies irritation, Denies itchy eyes, Denies loss of vision, Denies pain, Denies requires corrective lenses, Denies sensitivity to light, Denies other Ears, Nose, Mouth, and Throat: Denies abnormal hearing, Denies bleeding gums, Denies bad breath, Denies change in voice, Denies dental pain, Denies difficulty swallowing, Denies dizziness, Denies dry mouth, Denies ear discharge , Denies ear pain, Denies facial pain, Denies headache(s), Denies hearing loss, Denies hoarseness, Denies lip swelling, Denies nosebleed, Denies mouth lesions, Denies mouth pain, Denies nasal congestion, Denies nasal discharge, Denies nasal obstruction, Denies nasal trauma, Denies neck lump, Denies neck pain, Denies nose pain, Denies pain with swallowing, Denies poor balance, Denies post nasal drip, Denies ringing in the ears, Denies sinus pain, Denies sinus pressure , Denies sore throat, Denies throat swelling, Denies tongue swelling, Denies other Cardiovascular: Denies chest pain, Denies chest pain at rest, Denies chest pain with activity, Denies excessive sweating, Denies fainting, Denies fast heart rate, Denies foot swelling, Denies generalized swelling, Denies irregular heart rhythm, Denies leg pain with activity, Denies leg sores, Denies leg swelling, Denies lightheadedness, Denies radiating jaw, neck or arm pain, Denies rapid, pounding, or irregular heartbeat, Denies shortness of breath, Denies shortness of breath with activity, Denies shortness of breath when lying down, Denies shortness of breath causing sudden awakening, Denies slow heart rate, Denies other Respiratory: Denies change in phlegm color, Denies chest congestion, Denies cough, Denies coughing up blood, Denies excessive phlegm production, Denies pain on inspiration, Denies pain with cough, Denies shortness of breath, Denies shortness of breath with activity, Denies snoring, Denies stridor, Denies wheezing, Denies other Gastrointestinal: Denies abdominal pain, Denies belching, Denies black, tarry stools, Denies bloating, Denies bright, red blood in stools, Denies change in bowel habits, Denies constant urge to pass stool, Denies change in stools, Denies coffee ground vomit, Denies constipation, Denies cramping, Denies difficulty swallowing, Denies excessive passing of gas, Denies feeling full early, Denies heartburn, Denies incontinent of stools, Denies loose stools, Denies nausea, Denies pain with swallowing, Denies vomiting, Denies vomiting blood, Denies other Genitourinary: Denies blood in semen, Denies blood in urine, Denies decreased urination, Denies difficulty urinating, Denies difficulty with ejaculations, Denies erectile dysfunction, Denies genital lesions, Denies genital pain, Denies painful urination, Denies side pain, Denies frequent nighttime urination , Denies painful ejaculations, Denies penile discharge, Denies scrotal swelling , Denies testicle lump, Denies testicle pain, Denies urinary frequency, Denies urinary hesitancy, Denies urinary incontinence, Denies urinary urgency, Denies other Musculoskeletal: Reports joint pain Neurologic: Denies abnormal hearing, Denies abnormal movements, Denies abnormal speech, Denies abnormal walking, Denies behavioral changes, Denies burning sensations, Denies confusion, Denies dizziness, Denies fainting, Denies frequent falls, Denies headache(s), Denies lack of coordination, Denies localized weakness, Denies loss of vision, Denies memory loss, Denies numbness, Denies other visual disturbances, Denies radiating pain, Denies restless legs, Denies convulsions, Denies seizure-like activity, Denies sensory deficit, Denies tingling, Denies tingling/numbness/burning sensations, Denies tremor(s), Denies unsteadiness, Denies weakness, Denies other Psychiatric: Denies abnormal sleep pattern, Denies anxiety, Denies behavioral changes, Denies change in appetite, Denies change in sex drive, Denies confusion , Denies depression, Denies difficulty concentrating, Denies hearing things others do not hear, Denies hopelessness, Denies irritability, Denies lack of enjoyment, Denies memory loss, Denies mood swings, Denies panic attacks, Denies paranoia, Denies seeing things others do not see, Denies sensing things others do not sense, Denies tactile hallucinations, Denies thoughts of hurting/killing others, Denies thoughts of hurting/killing yourself, Denies other Endocrine: Denies cold intolerance, Denies excessive sweating, Denies flushing, Denies heat intolerance, Denies increased hunger, Denies increased thirst, Denies increased urination, Denies rapid, pounding, or irregular heartbeat, Denies other PMFSH - History History Provided By: Patient, Family Member - Medical / Surgical Hx Neg / Unobtainable Medical Problems Denied: Yes - Medical History Medical History: Medical History (Last Reviewed 12/28/17 @ 10:40 by Mayank Pritchett) History of prostate cancer Hx of fall Hx of myocardial infarction Hyperlipidemia - Surgical History Surgical History: Surgical History (Last Reviewed 12/28/17 @ 10:40 by Mayank Pritchett) Hx of CABG - Family History Family History: Family History (Last Reviewed 12/28/17 @ 10:40 by Mayank Pritchett) Mother Unknown family medical history Father Motor vehicle accident (victim) - Tobacco History Second Hand Smoke Exposure: No Tobacco Use In Past 30 Days: Yes (Quit several years ago) Smoking Status: Former smoker Tobacco Type: Cigarettes - Alcohol History How Often Do You Have a Drink Containing Alcohol: 4 or more times a week - Substance Use History Substance History: No History of Abuse, Active Abuse - Travel History History of Recent Travel: No Recent Travel in the [place] Within the Last 8 Weeks: No Recent Travel Out of the Country Within the Last 8 Weeks: No - Immunization History Tetanus Immunization: Unsure Hx Influenza Vaccine This Season: No Medications and Allergies Active Medications: Active Medications Acetaminophen (Tylenol) 650 mg PO Q4H PRN PRN Reason: pain Al Hydroxide/Mg Hydroxide (Milk Of Mati Castaneda) 30 ml PO Q12H PRN PRN Reason: Mild Constipation Aspirin (Ecotrin) 81 mg PO DAILY [facility] Last Admin: 12/28/17 09:39 Dose: 81 mg Atorvastatin Calcium (Lipitor) 20 mg PO DAILY [facility] Last Admin: 12/28/17 09:38 Dose: 20 mg Bisacodyl (Dulcolax Supp) 10 mg RECTAL DAILY PRN PRN Reason: SEVERE CONSITIPATION Fluticasone Propionate (Flonase Nasal [place]) 2 spray EACH NARE DAILY [facility] Sodium Chloride (Ns Inj) 500 mls @ 0 mls/hr IV.SIG BOLUS SILVIA Last Infusion: 12/28/17 01:06 Dose: Infused Sodium Chloride (Ns Inj) 1,000 mls @ 100 mls/hr IV.CONT .Q10H SILVIA Last Admin: 12/28/17 00:25 Dose: 100 mls/hr Lactated Ringer's (Lr 1000 Ml Inj) 1,000 mls @ 30 mls/hr IV.CONT .Q24H ONE Stop: 12/29/17 02:44 Sodium Chloride (Ns Inj) 500 mls @ 30 mls/hr IV.CONT .[id number] ONE Stop: 12/28/17 19:24 Lactulose (Lactulose Liq) 30 ml PO DAILY PRN PRN Reason: SEVERE CONSITIPATION Morphine Sulfate (Morphine Inj) 2 mg IV.PUSH Q2HR PRN PRN Reason: Acute Pain Last Admin: 12/28/17 09:41 Dose: 2 mg Multivitamins (Theragran) 1 tab PO DAILY [facility] Naloxone HCl (Narcan Inj) 0.4 mg IV.PUSH UNSCH PRN PRN Reason: SEE LABEL COMMENTS Oxybutynin Chloride (Ditropan) 15 mg PO DAILY [facility] Patient Own Medication ( Diclofenac [Voltaren ] Gel) 0 each TOPICAL QID [facility] Sennosides (Senokot) 17.2 mg PO Q12H PRN PRN Reason: Moderate Constipation Sodium Chloride (Ns Flush) 2 ml IV.FLUSH PRN PRN PRN Reason: FLUSH AFTER USING IV ACCESS Sodium Chloride ([place] Nasal [place]) 1 spray EACH NARE Q4H [facility] Zolpidem Tartrate (Ambien) 2.5 mg PO DAILY PRN PRN Reason: insomina Allergies Allergy/AdvReac Type Severity Reaction Status Date / Time penicillin G Allergy Severe HIVES Verified 12/27/17 22:15 Home Medications Medication Instructions Recorded Confirmed Type acetaminophen [Tylenol] 650 mg PO Q4H PRN 12/27/17 12/27/17 History aspirin [Aspir-81] 81 mg PO DAILY 12/27/17 12/27/17 History diclofenac sodium [Voltaren] 2 g TOPICAL QID 12/27/17 12/27/17 History fluticasone [Flonase Allergy 2 spray INTRANASAL DAILY 12/27/17 12/27/17 History Relief] oxybutynin chloride 15 mg PO DAILY 12/27/17 12/27/17 History rosuvastatin [Crestor] 10 mg PO DAILY 12/27/17 12/27/17 History sodium chloride [Saline Nasal] 1 spray INTRANASAL Q4H 12/27/17 12/27/17 History vit D3-folic [id number] 1 tab PO DAILY 12/27/17 12/27/17 History zolpidem [Ambien] 2.5 mg PO DAILY PRN 12/27/17 12/27/17 History Exam Vital signs: Vital Signs 12/27/17 21:54 12/27/17 21:59 12/28/17 02:00 Temperature 97.5 F L Pulse Rate 55 L 70 Respiratory Rate 18 Blood Pressure 176/81 H Pulse Oximetry 97 100 12/28/17 04:00 12/28/17 08:00 Temperature 98.2 F 97.5 F L Pulse Rate 62 60 Respiratory Rate 16 16 Blood Pressure 138/91 H 176/81 H Pulse Oximetry 98 96 Intake & Output 12/27/17 12/28/17 12/28/17 18:59 06:59 18:59 Intake Total 500 / 500 Output Total 550 / 550 Balance -50 / -50 Weight 77.5 kg Intake: IV 500 / 500 NS Inj 500 ML @ Wide Open IV. 500 / 500 SIG BOLUS [facility] Rx#:[id number] Output: Urine 550 / 550 Other: Date of Last Bowel Movement 12/27/17 - Constitutional mild distress - Routine HEENT Exam Head: Present: normocephalic, atraumatic Eye: Present: normal accommodation ENT: Present: mucous membranes moist - Routine Neck Exam Present: supple, full ROM - Routine Respiratory Exam Present: CTA bilaterally - Routine Cardiovascular Exam Present: RRR, S1, S2 - Routine Abdominal Exam Present: soft, normoactive bowel sounds - Routine Extremities Exam Comments: LROM left hip due to pain - Routine Skin Exam Present: intact - Routine Neurological Exam Present: alert, oriented X3 Results - Labs Result diagrams: 12/27/17 22:50 12/27/17 22:50 Abnormal lab results 12/27/17 12/27/17 12/27/17 Range/Units 22:50 22:50 23:45 RBC 4.47 L (4.50-5.90) mil/mm3 Plt Count 133 L (150-450) th/mm3 [place] % (Auto) 9.0 H (0.0-8.0) % Chloride 110 H (98-107) meq/L BUN 23 H (7-18) mg/dL Creatinine 1.43 H (0.60-1.30) mg/dL Estimated GFR 47 L (>89) mL/min Random Glucose 114 H (74-106) mg/dL Troponin I Less than 0.02 L (0.02-0.05) ng/mL Urine Clarity Hazy H (Clear) Urine Mucus Few H (Occasional) /lpf Serum Alcohol 76 H (0-5) mg/dL Short CBC 12/27/17 Range/Units 22:50 WBC 8.7 (4.0-11.0) th/mm3 Hgb 14.2 (13.0-17.0) gm/dL Hct 42.0 (39.0-51.0) % Plt Count 133 L (150-450) th/mm3 BMP 12/27/17 22:50 Sodium 143 Potassium 4.2 Chloride 110 H Carbon Dioxide 25.3 BUN 23 H Creatinine 1.43 H Calcium 8.6 Cardiac Enzymes 12/27/17 12/28/17 Range/Units 22:50 04:04 Total Creatine Kinase 78 (39-308) U/L Troponin I Less than 0.02 L 0.04 (0.02-0.05) ng/mL Urine 12/27/17 Range/Units 23:45 Urine Color Yellow (Yellw/Straw) Urine Clarity Hazy H (Clear) Urine pH 5.0 (5.0-8.5) Ur Specific [place] 1.011 (1.002-1.035) Urine Protein Negative (Neg-Trace) mg/dL Urine Glucose (UA) Negative (Negative) mg/dL - Imaging Impressions Femur X-Ray 12/27/17 22:36 CONCLUSION: Intertrochanteric fracture of the left hip. Pelvis X-Ray 12/27/17 22:36 CONCLUSION: Intertrochanteric fracture of the left hip Head CT 12/27/17 22:37 CONCLUSION: 1. No acute findings in the brain. 2. Bilateral lacunar infarcts and areas of decreased attenuation in the supratentorial white matter suggesting ischemic etiology. . Caprini VTE Risk Assessment Caprini VTE Risk Assessment: Moderate/High Risk (score >= 2) VTE Pharmacological Exception Reason: High risk for bleeding Caprini Risk Assessment Model: Point Value = 1 Point Value = 2 Point Value = 3 Point Value = 5 Age 41-60 Minor surgery BMI > 25 kg/m2 Swollen legs Varicose veins or History of unexplained or recurrent spontaneous Oral contraceptives or hormone replacement Sepsis (< 1 month) Serious lung disease, including pneumonia (< 1 month) Abnormal pulmonary function Acute myocardial infarction Congestive heart failure (< 1 month) History of inflammatory bowel disease Medical patient at bed rest Age 61-74 Arthroscopic surgery Major open surgery (> 45 min) Laparoscopic surgery (> 45 min) Malignancy Confined to bed (> 72 hours) Immobilizing plaster cast Central venous access Age >= 75 History of VTE Family history of VTE Factor V Leiden Prothrombin [id number] Lupus anticoagulant Anticardiolipin antibodies Elevated serum homocysteine Heparin-induced thrombocytopenia Other congenital or acquired thrombophilia Stroke (< 1 month) Elective arthroplasty Hip, pelvis, or leg fracture Acute spinal cord injury (< 1 month) Prophylaxis Regimen: Total Risk Factor Score Risk Level Prophylaxis Regimen 0-1 Low Early ambulation 2 Moderate Order ONE of the following: *Sequential Compression Device (SCD) *Heparin 5000 units SQ BID 3-4 Higher Order ONE of the following medications: *Heparin 5000 units SQ TID *Enoxaparin/Lovenox 40 mg SQ daily (WT < 150 kg, CrCl > 30 mL/min) *Enoxaparin/Lovenox 30 mg SQ daily (WT < 150 kg, CrCl > 10-29 mL/min) *Enoxaparin/Lovenox 30 mg SQ BID (WT < 150 kg, CrCl > 30 mL/min) AND/OR *Sequential Compression Device (SCD) 5 or more Highest Order ONE of the following medications: *Heparin 5000 units SQ TID (Preferred with Epidurals) *Enoxaparin/Lovenox 40 mg SQ daily (WT < 150 kg, CrCl > 30 mL/min) *Enoxaparin/Lovenox 30 mg SQ daily (WT < 150 kg, CrCl > 10-29 mL/min) *Enoxaparin/Lovenox 30 mg SQ BID (WT < 150 kg, CrCl > 30 mL/min) AND *Sequential Compression Device (SCD) Assessment and Plan - Assessment (1) Closed left hip fracture Code(s): S72.002A - Fracture of unspecified part of neck of left femur, initial encounter for closed fracture Status: Acute Plan: For surgery today pending cardiac clearance. (2) Hyperlipidemia LDL goal <100 Code(s): E78.5 - Hyperlipidemia, unspecified Status: Acute (3) CAD (coronary atherosclerotic disease) Code(s): I25.10 - Atherosclerotic heart disease of [place] coronary artery without angina pectoris Status: Chronic - Assessment and Plan For surgery per Ortho pending clearance by Cards. Discussed Condition With: Patient and son H&P: Quality - VTE Deep Vein Thrombosis/Pulmonary Embolism Present on Admission: No (3) CAD (coronary atherosclerotic disease) Qualifiers: Coronary Disease-Associated Artery/Lesion type: [place] artery Associated angina: without angina
--- NOTE | 2017-12-28 11:57 | OTSOAPIP ---
TIME SESSION COMPLETED: 1000 TREATMENT TIME: 0 MINS. CHART REVIEWED. PATIENT FOUND IN BED WITH SON PRESENT. BOTH PARTIES EDUCATED ON OCCUPATIONAL THERAPY SERVICE. PATIENT IS BEING PLACE ON HOLD TODAY. PATIENT IS SCHEDULE TO HAVE SURGERY OF LEFT HIP FRACTURE POST FALL. PLAN: SEE PATIENT POST SURGERY Therapist: Miya Fitzgerald Signature on file
[2017-12-28 12:18] LABS: Phosphorus 2.8 mg/dL (2.5-4.9)
[2017-12-28 12:20] LABS: Troponin I 0.04 ng/mL (0.02-0.05)
[2017-12-28] MEDS ORDERED: DICLOFENAC TOPICAL SCH (13:00)
--- NOTE | 2017-12-28 13:01 | ECHRPT ---
Indication: CONCLUSIONS The left ventricular systolic function is nbfwuxbe-[id number]-vaejwsc reduced with an estimated ejection fra ction in the range of 35-40%. Wall thickness is normal. Normal left ventricular size. Trace aortic valve regurgitation. Oboyd-ck-yyuk mitral valve regurgitation. There is trace tricuspid valve regurgitation. The estimated pulmonary arterial pressure is 30.6 mmHg. BP: / HR: Rhythm: Sinus MEASUREMENTS (Male / Female) Normal Values Technical Quality:Good 2D ECHO LV Diastolic Diameter PLAX 5.4 cm 4.2 - 5.9 / 3.9 - 5.3 cm LV Systolic Diameter PLAX 4.5 cm IVS Diastolic Thickness 1.2 cm 0.6 - 1.0 / 0.6 - 0.9 cm LVPW Diastolic Thickness 1.2 cm 0.6 - 1.0 / 0.6 - 0.9 cm LV Relative Wall Thickness 0.4 LVOT Diameter 2.5 cm M-MODE Aortic Root Diameter MM 4.5 cm LA Systolic Diameter MM 3.4 cm LA Ao Ratio MM 0.8 AV Cusp Separation MM 2.0 cm DOPPLER AV Peak Velocity 160.0 cm/s AV Peak Gradient 10.2 mmHg AI Peak Velocity 278.0 cm/s AI Peak Gradient 30.9 mmHg AI Pressure Half Time 676.0 ms LVOT Peak Velocity 77.5 cm/s LVOT Peak Gradient 2.4 mmHg AV Area Cont Eq pk 2.4 cm MR Peak Velocity 308.5 cm/s MR Peak Gradient 38.1 mmHg Mitral E Point Velocity 82.3 cm/s Mitral A Point Velocity 145.0 cm/s Mitral E to A Ratio 0.6 LV E' Lateral Velocity 5.1 cm/s Mitral E to LV E' Lateral Ratio 16.2 LV E' Septal Velocity 3.4 cm/s Mitral E to LV E' Septal Ratio 24.1 TR Peak Velocity 227.0 cm/s TR Peak Gradient 20.6 mmHg Right Atrial Pressure 10.0 mmHg Pulmonary Artery Systolic Pressu 30.6 mmHg Right Ventricular Systolic Press 30.6 mmHg PV Peak Velocity 117.0 cm/s PV Peak Gradient 5.5 mmHg FINDINGS LEFT VENTRICLE The left ventricular systolic function is haulbjgv-ml-jochwfm reduced with an estimated ejection fra ction in the range of 35-40%. Global hypokinesis. Wall thickness is normal. Normal left ventricular size. RIGHT VENTRICLE Normal right ventricular size and systolic function. LEFT ATRIUM The left atrial size is normal. RIGHT ATRIUM The right atrial size is normal. ATRIAL SEPTUM Normal atrial septal thickness without atrial level shunting by limited color doppler interrogation. AORTA The aortic root and proximal ascending aorta are normal in size on limited imaging. MITRAL VALVE Ujydj-vt-ghfv mitral valve regurgitation. AORTIC VALVE Trace aortic valve regurgitation. TRICUSPID VALVE There is trace tricuspid valve regurgitation. The estimated pulmonary arterial pressure is 30.6 mmHg. PULMONARY VALVE No pulmonary valve regurgitation or stenosis. VESSELS The inferior vena cava is normal in size. PERICARDIUM No pericardial effusion. Lizabeth Mejia MD, FACC (Electronically Signed) Final Date:28 December 2017 13:00
[2017-12-28] MEDS: Acetaminophen 325 MG Tablet PO PRN (16:10)
[2017-12-28] MEDS: Sodium Chloride 0.65% Nasal Spray 45 ML Bottle EACH NARE SCH ×3 (17:45→17:46)
--- NOTE | 2017-12-29 00:21 | ECG ---
Date Performed: 12/27/2017 Time Performed: 22:41:35 PTAGE: 87 years EKG: SINUS BRADYCARDIA WITH FIRST DEGREE AV BLOCK BORDERLINE LEFT AXIS DEVIATION MODERATE INTRAV ENTRICULAR CONDUCTION DELAY ABNORMAL ECG PREVIOUS TRACING : 01/19/2014 10.23 Compared to previous tracing, There is normalization of pre viously noted anterolateral ST-T wave abnormality DOCTOR: Devin Sheriff Interpretating Date/Time 12/29/2017 00:20:23
--- NOTE | 2017-12-29 02:06 | MB ---
cc: Lizabeth Mejia MD DATE: 12/28/2017 REASON FOR CONSULTATION: Syncope and preoperative risk stratification. HISTORY OF PRESENT ILLNESS: Mr. Peterson is a pleasant 87-year-old patient of mine who does have a history of ischemic cardiomyopathy and prior bypass with OCHOA to LAD, SVG to the first marginal and sequential to the OM3 as well as SVG to the PDA. He underwent a nuclear stress test approximately 1 year ago, which showed a fixed inferior defect and the EF of 40%. The patient reports to me that his legs got weak. He fell and subsequently has a hip fracture. He denies any chest pain, shortness of breath or dizziness prior to the fall. OUTPATIENT MEDICATIONS: Include: 1. Amlodipine 5 mg a day. 2. Aspirin 81 mg a day. 3. Crestor. 4. Flomax. 5. Tylenol. ALLERGIES: PENICILLIN. SOCIAL HISTORY: The patient does not smoke. REVIEW OF SYSTEMS: Except as mentioned in the HPI, all 12 systems are negative. FAMILY HISTORY: Noncontributory. PHYSICAL EXAMINATION: VITAL SIGNS: 97.8, 51, 16, 150/67. GENERAL: He is a well-appearing man, who is in no apparent distress. NECK: Free from JVD. LUNGS: Bilaterally clear to auscultation. CARDIOVASCULAR: He has a normal S1 and S2. No murmurs, rubs, or gallops were appreciated. ABDOMEN: Soft. EXTREMITIES: Free from edema. LABORATORY DATA: Significant for serum alcohol of 76, serial troponins of 0.02/0.04/0.04. His creatinine is 1.43. Telemetry - this does show a normal sinus rhythm. There are intermittent episodes of interventricular conduction delay. No pauses, however, were appreciated. IMPRESSION: Preoperative risk stratification - The patient certainly does have a history of coronary artery disease. He has been very stable and had a nonischemic nuclear stress test. His fall does not appear to be cardiac related. The patient does have a fracture and will be at moderate cardiovascular risk with his surgery. No further cardiovascular risk stratification is felt appropriate at this time. Syncope - at this point there does not appear to be any overt cardiac etiology. I would continue monitoring him on telemetry. History of ischemic cardiomyopathy - the patient's echo does show EF of 35-40%, which is felt consistent with his most recent studies. Again, no further workup is felt appropriate at this time. MD YENNIFER Rinaldi/rk , 08:20 PM , 08:29 PM
[2017-12-29] MEDS: Morphine Sulfate Inj 2 MG/ML Vial IV.PUSH PRN ×6 (02:12→23:10)
[2017-12-29] MEDS: Sod Chloride 0.9% Inj 1,000 ML IV.CONT SCH ×3 (04:30→16:30)
[2017-12-29] MEDS: Sodium Chloride 0.65% Nasal Spray 45 ML Bottle EACH NARE SCH ×7 (05:55→21:24)
[2017-12-29 07:58] LABS: Calcium 8.4 mg/dL (8.5-10.1); Magnesium 2.2 mg/dL (1.5-2.5); Potassium 3.9 meq/L (3.5-5.1)
[2017-12-29] MEDS ORDERED: Clindamycin Inj 600 MG/4 ML Vial ONE (08:12)
--- NOTE | 2017-12-29 09:39 | P.BOP ---
- Preoperative Diagnosis (1) Intertrochanteric fracture of left femur - Postoperative Diagnosis (1) Intertrochanteric fracture of left femur Date of procedure: 12/29/17 Procedure: cephalomedullary nailing left femur Implants: [employer]ynthes TFNa Anesthesia: GETA Surgeon: Ashley Correia MD Estimated blood loss (mL): 75 Pathology: none sent Condition: stable Disposition: PACU
[2017-12-29] MEDS ORDERED: fentaNYL Citrate Inj 100 MCG/2 ML Ampul ONE (09:58)
[2017-12-29] MEDS ORDERED: Clindamycin 600 mg/NS Premix 600 MG/50 ML PIGGYBACK IV.SIG SCH (10:00)
--- NOTE | 2017-12-29 11:03 | P.PNFP ---
Subjective Interval history: Now S/P nailing left femur. Pain better controlled overnight with IV MS. Results - Labs Result diagrams: 12/27/17 22:50 12/29/17 06:44 Abnormal lab results 12/29/17 Range/Units 06:44 BUN 19 H (7-18) mg/dL Estimated GFR 62 L (>89) mL/min Random Glucose 115 H (74-106) mg/dL Calcium 8.4 L (8.5-10.1) mg/dL BMP 12/29/17 06:44 Sodium 139 Potassium 3.9 Chloride 106 Carbon Dioxide 25.0 BUN 19 H Creatinine 1.12 Calcium 8.4 L Cardiac Enzymes 12/28/17 Range/Units 11:08 Total Creatine Kinase 58 (39-308) U/L Troponin I 0.04 (0.02-0.05) ng/mL Physical Exam Vital signs: Vital Signs 12/28/17 12:00 12/28/17 16:00 12/28/17 18:30 Temperature 97.8 F 98.2 F Pulse Rate 51 L 61 Respiratory Rate 16 16 Blood Pressure 150/67 H 170/70 H 156/60 H Pulse Oximetry 98 97 12/28/17 20:00 12/29/17 00:00 12/29/17 04:00 Temperature 98.4 F 98.0 F 97.8 F Pulse Rate 56 L 59 L 59 L Respiratory Rate 16 16 16 Blood Pressure 150/67 H 129/60 147/76 H Pulse Oximetry 97 96 95 12/29/17 08:00 12/29/17 09:51 12/29/17 10:00 Temperature 97.5 F L 98 F Pulse Rate 53 L 79 69 Respiratory Rate 18 19 17 Blood Pressure 139/76 161/72 H 172/75 H Pulse Oximetry 95 91 L 95 12/29/17 10:12 12/29/17 10:15 12/29/17 10:28 Temperature 98 F Pulse Rate 71 70 Respiratory Rate 18 16 Blood Pressure 126/63 170/75 H Pulse Oximetry 95 94 L 95 Intake & Output 12/28/17 12/29/17 12/29/17 18:59 06:59 18:59 Intake Total 0 / 0 1350 / 1350 800 / 800 Output Total 1800 / 1800 75 / 75 Balance 0 / 0 -450 / -450 725 / 725 Weight 76.6 kg Intake: Oral 0 / 0 1350 / 1350 Anesthesia Amount 800 / 800 Output: Urine 1800 / 1800 Estimated Blood Loss 75 / 75 Other: Date of Last Bowel Movement 12/27/17 12/27/17 - Constitutional no acute distress - Routine HEENT Exam Head: Present: normocephalic Eye: Present: PERRL ENT: Present: mucous membranes moist - Routine Neck Exam Present: supple - Routine Respiratory Exam Present: CTA bilaterally - Routine Cardiovascular Exam Present: RRR, S1, S2 - Routine Abdominal Exam Present: soft, normoactive bowel sounds - Routine Extremities Exam Comments: Left hip pain with LROM. - Routine Skin Exam Present: intact - Routine Neurological Exam Present: alert, oriented X3 Assessment and Plan - Assessment (1) Closed left hip fracture Code(s): S72.002A - Fracture of unspecified part of neck of left femur, initial encounter for closed fracture Status: Acute Plan: S/P nailing left hip femur fracture. Will recheck labs in the AM and F/U surgery recommendations. (2) Hyperlipidemia LDL goal <100 Code(s): E78.5 - Hyperlipidemia, unspecified Status: Acute Plan: Cont home meds. (3) CAD (coronary atherosclerotic disease) Code(s): I25.10 - Atherosclerotic heart disease of [place] coronary artery without angina pectoris Status: Chronic Plan: F/U Cards recommendations - Assessment and Plan 12/28/17 - For surgery per Ortho pending clearance by Cards. 12/29/17 - He is S/P nailing of left femur fracture. Will F/U Surg recommendations and recheck labs in the AM. (3) CAD (coronary atherosclerotic disease) Qualifiers: Coronary Disease-Associated Artery/Lesion type: [place] artery Associated angina: without angina
--- NOTE | 2017-12-29 12:00 | XR ---
EXAM DATE: 12/29/2017 11:53 AM EDT AGE/SEX: 87 years / Male INDICATIONS: Left troch nail. CLINICAL DATA: This is the patient's initial encounter. Patient reports that signs and symptoms have been present for 1 day and indicates a pain score of Nonresponsive. MEDICAL/SURGICAL HISTORY: None. None. COMPARISON: No prior exams available for comparison. FINDINGS: 4 digital images reveal thinning of left hip fracture. Hardware is intact. There is good reduction of intertrochanteric fracture with congregation of anatomic alignment. CONCLUSION: Satisfactory operative appearance Electronically signed by: Steven Jack MD 12/29/2017 11:59 AM EDT
[2017-12-29] MEDS: Acetaminophen 325 MG Tablet PO PRN (13:43)
[2017-12-29] MEDS: Clindamycin 600 mg/NS Premix 600 MG/50 ML PIGGYBACK IV.SIG SCH ×2 (16:40→23:10)
[2017-12-30] MEDS: Sodium Chloride 0.65% Nasal Spray 45 ML Bottle EACH NARE SCH ×5 (02:54→21:21)
[2017-12-30] MEDS: Acetaminophen 325 MG Tablet PO PRN ×2 (05:14→10:00)
[2017-12-30] MEDS: Sod Chloride 0.9% Inj 1,000 ML IV.CONT SCH ×3 (05:16→23:27)
[2017-12-30] MEDS: Clindamycin 600 mg/NS Premix 600 MG/50 ML PIGGYBACK IV.SIG SCH (08:00)
--- NOTE | 2017-12-30 12:16 | P.PNFP ---
Subjective Interval history: Delayed entry, seen this am Slept well, complains of left hip discomfort. Dsg C/D/I Results - Labs Result diagrams: 12/27/17 22:50 12/29/17 06:44 Physical Exam Vital signs: Vital Signs 12/29/17 16:00 12/29/17 20:00 12/30/17 00:00 Temperature 97.3 F L 98.8 F 98.7 F Pulse Rate 78 67 62 Respiratory Rate 16 16 16 Blood Pressure 136/83 130/60 119/55 L Pulse Oximetry 99 99 95 12/30/17 04:00 12/30/17 08:00 Temperature 97.6 F 97.3 F L Pulse Rate 64 68 Respiratory Rate 16 18 Blood Pressure 117/57 L 135/62 Pulse Oximetry 96 94 L Intake & Output 12/29/17 12/30/17 12/30/17 18:59 06:59 18:59 Intake Total 850 / 850 530 / 530 Output Total 75 / 75 575 / 575 Balance 775 / 775 -45 / -45 Weight 76.6 kg Intake: IV 50 / 50 50 / 50 Cleocin 600 mg/NS Premix 600 mg 50 / 50 50 / 50 In 50 ml @ 100 mls/hr IV.SIG Q8H [facility] Rx#:[id number] Oral 480 / 480 Anesthesia Amount 800 / 800 Output: Urine 575 / 575 Estimated Blood Loss 75 / 75 Other: # Incontinent Voids 1 Date of Last Bowel Movement 12/27/17 - Constitutional no acute distress - Routine HEENT Exam Eye: Present: PERRL ENT: Present: mucous membranes moist - Routine Neck Exam Present: supple - Routine Respiratory Exam Present: CTA bilaterally - Routine Cardiovascular Exam Present: S1, S2 - Routine Abdominal Exam Present: soft, normoactive bowel sounds - Routine Skin Exam Present: dry, warm - Routine Neurological Exam Present: alert, oriented X3 - Routine Psychiatric Exam Present: cooperative Assessment and Plan - Assessment (1) Closed left hip fracture Code(s): S72.002A - Fracture of unspecified part of neck of left femur, initial encounter for closed fracture Status: Acute Plan: S/P nailing left hip femur fracture. Will recheck labs in the AM and F/U surgery recommendations. (2) Hyperlipidemia LDL goal <100 Code(s): E78.5 - Hyperlipidemia, unspecified Status: Acute Plan: Cont home meds. (3) CAD (coronary atherosclerotic disease) Code(s): I25.10 - Atherosclerotic heart disease of [place] coronary artery without angina pectoris Status: Chronic Plan: F/U Cards recommendations - Assessment and Plan 12/28/17 - For surgery per Ortho pending clearance by Cards. 12/29/17 - He is S/P nailing of left femur fracture. Will F/U Surg recommendations and recheck labs in the AM. 12/30/17- Vss afebrile. Pain to left hip, tramadol ordered. 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 (3) CAD (coronary atherosclerotic disease) Qualifiers: Coronary Disease-Associated Artery/Lesion type: [place] artery Associated angina: without angina
[2017-12-30] MEDS ORDERED: Sodium Chloride 0.9% 2 ML Flush PRN IV.FLUSH (13:19)
[2017-12-30] MEDS ORDERED: Acetaminophen 325 MG Tablet PO PRN ×2 (14:45→16:00)
[2017-12-30] MEDS: Sodium Chloride 0.9% 2 ML Flush BID IV.FLUSH SCH (20:05)
--- NOTE | 2017-12-30 20:51 | P.PNOP ---
Subjective Interval history: Complains of a lot of hip pain this afternoon, mildly improved with Tramadol. No overnight events. Physical Exam Vital signs: Vital Signs 12/30/17 00:00 12/30/17 04:00 12/30/17 08:00 Temperature 98.7 F 97.6 F 97.3 F L Pulse Rate 62 64 68 Respiratory Rate 16 16 18 Blood Pressure 119/55 L 117/57 L 135/62 Pulse Oximetry 95 96 94 L 12/30/17 09:00 12/30/17 12:00 12/30/17 16:00 Temperature 97.4 F L 97.7 F Pulse Rate 68 65 70 Respiratory Rate 17 18 Blood Pressure 151/60 H 180/77 H Pulse Oximetry 95 93 L Intake & Output 12/30/17 12/30/17 12/31/17 06:59 18:59 06:59 Intake Total 530 / 530 Output Total 575 / 575 450 / 450 Balance -45 / -45 -450 / -450 Weight 76.6 kg Intake: IV 50 / 50 Cleocin 600 mg/NS Premix 600 mg 50 / 50 In 50 ml @ 100 mls/hr IV.SIG Q8H [facility] Rx#:[id number] Oral 480 / 480 Output: Urine 575 / 575 450 / 450 Other: # Voids 2 # Incontinent Voids 1 Date of Last Bowel Movement 12/27/17 12/27/17 Narrative: Left hip dressings clean, dry and intact. 2+DP. +EHL/FHL/PF/DF, SILT. Results - Labs CBC & Chem 7: 12/27/17 22:50 12/29/17 06:44 Assessment and Plan - Assessment and Plan 87 year old male POD 1 s/p CMN left intertrochanteric femur fracture Plan: -pain control: will switch Tramadol to [place] -WBAT LLE -PT to mobilize -Lovenox VTE ppx
[2017-12-31] MEDS: Sodium Chloride 0.65% Nasal Spray 45 ML Bottle EACH NARE SCH ×6 (04:39→21:33)
[2017-12-31 04:50] LABS: Free PSA/PSA Ratio 0 ratio
[2017-12-31] MEDS: Sodium Chloride 0.9% 2 ML Flush BID IV.FLUSH SCH ×2 (08:38→21:32)
[2017-12-31] MEDS: Sod Chloride 0.9% Inj 1,000 ML IV.CONT SCH ×2 (08:44→22:31)
--- NOTE | 2017-12-31 09:01 | P.PNFP ---
Subjective Interval history: Up eating breakfast, pain better controlled. Uneventful night reported Left hip dsg C/D/I Results - Labs Result diagrams: 12/27/17 22:50 12/29/17 06:44 Physical Exam Vital signs: Vital Signs 12/30/17 09:00 12/30/17 12:00 12/30/17 16:00 Temperature 97.4 F L 97.7 F Pulse Rate 68 65 70 Respiratory Rate 17 18 Blood Pressure 151/60 H 180/77 H Pulse Oximetry 95 93 L 12/30/17 19:50 12/30/17 20:01 12/30/17 23:06 Temperature 97.4 F L 98.3 F Pulse Rate 60 92 H 68 Respiratory Rate 17 17 Blood Pressure 125/66 118/57 L Pulse Oximetry 94 L 95 12/31/17 00:00 12/31/17 03:19 12/31/17 04:00 Temperature 98.9 F Pulse Rate 74 55 L 98 H Respiratory Rate 17 Blood Pressure 121/61 Pulse Oximetry 96 Intake & Output 12/30/17 12/31/17 12/31/17 18:59 06:59 18:59 Intake Total 1480 / 1480 Output Total 450 / 450 Balance 1030 / 1030 Weight 76.6 kg Intake: IV 1000 / 1000 NS Inj 1,000 ML @ 100 mls/hr IV 1000 / 1000 .CONT .Q10H [facility] Rx#:[id number] Oral 480 / 480 Output: Urine 450 / 450 Other: # Voids 500 Date of Last Bowel Movement 12/27/17 12/29/17 # Bowel Movements 0 - Constitutional no acute distress - Routine HEENT Exam Eye: Present: PERRL ENT: Present: mucous membranes moist - Routine Neck Exam Present: supple - Routine Respiratory Exam Present: CTA bilaterally - Routine Cardiovascular Exam Present: S1, S2 - Routine Abdominal Exam Present: soft, normoactive bowel sounds - Routine Skin Exam Present: dry, warm - Routine Neurological Exam Present: alert, oriented X3 - Routine Psychiatric Exam Present: cooperative Assessment and Plan - Assessment (1) Closed left hip fracture Code(s): S72.002A - Fracture of unspecified part of neck of left femur, initial encounter for closed fracture Status: Acute Plan: S/P nailing left hip femur fracture. Will recheck labs in the AM and F/U surgery recommendations. (2) Hyperlipidemia LDL goal <100 Code(s): E78.5 - Hyperlipidemia, unspecified Status: Acute Plan: Cont home meds. (3) CAD (coronary atherosclerotic disease) Code(s): I25.10 - Atherosclerotic heart disease of [place] coronary artery without angina pectoris Status: Chronic Plan: F/U Cards recommendations - Assessment and Plan 12/28/17 - For surgery per Ortho pending clearance by Cards. 12/29/17 - He is S/P nailing of left femur fracture. Will F/U Surg recommendations and recheck labs in the AM. 12/30/17- Vss afebrile. Pain to left hip, tramadol ordered. 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 12/31/17- Left hip dsg C/D/I, VSS afebrile. Pain better controlled with [place]. No Bm thus far, will take laxitive today, get up to bathroom. Inpatient rehab pending at [place] or [facility]. Labs in am (3) CAD (coronary atherosclerotic disease) Qualifiers: Coronary Disease-Associated Artery/Lesion type: [place] artery Associated angina: without angina
--- NOTE | 2017-12-31 18:53 | P.PNOP ---
Subjective Interval history: Pain better today. No overnight events. Son states he is a little confused, possibly from the pain medication. Physical Exam Vital signs: Vital Signs 12/30/17 19:50 12/30/17 20:01 12/30/17 23:06 Temperature 97.4 F L 98.3 F Pulse Rate 60 92 H 68 Respiratory Rate 17 17 Blood Pressure 125/66 118/57 L Pulse Oximetry 94 L 95 12/31/17 00:00 12/31/17 03:19 12/31/17 04:00 Temperature 98.9 F Pulse Rate 74 55 L 98 H Respiratory Rate 17 Blood Pressure 121/61 Pulse Oximetry 96 12/31/17 08:00 12/31/17 09:00 12/31/17 12:00 Temperature 98.3 F 97.5 F L Pulse Rate 56 L 81 62 Respiratory Rate 18 18 Blood Pressure 129/57 L 127/74 Pulse Oximetry 92 L 93 L 12/31/17 16:00 Temperature 97.7 F Pulse Rate 55 L Respiratory Rate 18 Blood Pressure 153/76 H Pulse Oximetry 92 L Intake & Output 12/30/17 12/31/17 12/31/17 18:59 06:59 18:59 Intake Total 1480 / 1480 1160 / 1160 Output Total 450 / 450 Balance 1030 / 1030 1160 / 1160 Weight 76.6 kg Intake: IV 1000 / 1000 NS Inj 1,000 ML @ 100 mls/hr IV 1000 / 1000 .CONT .Q10H [facility] Rx#:[id number] Oral 480 / 480 1160 / 1160 Output: Urine 450 / 450 Other: # Voids 500 3 Date of Last Bowel Movement 12/27/17 12/29/17 12/29/17 # Bowel Movements 0 0 Narrative: LLE dressings intact. Neurovascularly intact distally. Results - Labs CBC & Chem 7: 12/27/17 22:50 12/29/17 06:44 Laboratory Results - last 24 hr 12/28/17 11:08 Free PSA Less than 0.1 Total PSA Less than 0.1 PSA Free/Total Ratio 0 Assessment and Plan - Assessment and Plan 87 year old male POD 2 s/p CMN left intertrochanteric femur fracture Plan: -WBAT LLE -PT to mobilize -Lovenox VTE ppx -OK to d/c from orthopedic standpoint, follow up with Dr. Correia in 2 weeks
--- NOTE | 2017-12-31 20:16 | P.OP ---
- Preoperative Diagnosis (1) Intertrochanteric fracture of left femur - Postoperative Diagnosis (1) Intertrochanteric fracture of left femur Date of procedure: 12/29/17 Procedure: cephalomedullary nailing left intertrochanteric femur fracture [facility]: Ashley Correia MD Estimated blood loss (mL): 75 Pathology: none sent Operation and Findings: The patient was brought back to the operating room and general anesthesia was then administered. He was then positioned supine on the hana table with a well- padded peroneal post. The nonoperative leg was placed in a well-padded leg ochoa. The left foot was placed into a well-padded boot and appropriate traction and rotation was applied in order to obtain an anatomic reduction under image intensification. At this point in time the patient's left hip was prepped and draped in the usual sterile fashion. A small incision was made just proximal to the greater trochanter. This was taken down through the skin and subcutaneous tissues. The abductor muscle belly was split in line with its fibers and the guide pin was placed into the greater trochanter under image intensification. The opening reamer was utilized and the intramedullary nail was placed. The jig was used to place a guidepin for the helical blade and proper position and depth confirmed with image intensification. The helical blade was then placed and then traction was released. The nail was then locked distally with a single screw. Final images were taken in the AP and lateral planes under image intensification. The wounds were copiously irrigated. The wounds were closed in layers and sterile dressings applied. The patient was then awoken from general anesthesia and taken to the recovery room in good condition.
--- NOTE | 2017-12-31 22:53 | P.PNCA ---
Subjective Interval history: Follow up for Dr. Mejia Asked to see due to PVCs Overall, patient's only complaint is left hip pain No SOB/CP Telemetry with multiple PVCs Medications and Allergies Active Medications: Active Medications Hydrocodone Bitart/Acetaminophen ([place] 5/325) 1 tab PO Q4H PRN PRN Reason: PAIN SCALE 6 TO 10 Last Admin: 12/31/17 18:17 Dose: 1 tab Al Hydroxide/Mg Hydroxide (Milk Of Magnesia Liq) 30 ml PO Q12H PRN PRN Reason: Mild Constipation Last Admin: 12/30/17 20:06 Dose: 30 ml Aspirin (Ecotrin) 81 mg PO DAILY [facility] Last Admin: 12/31/17 08:38 Dose: 81 mg Atorvastatin Calcium (Lipitor) 20 mg PO DAILY [facility] Last Admin: 12/31/17 08:37 Dose: 20 mg Bisacodyl (Dulcolax Supp) 10 mg RECTAL DAILY PRN PRN Reason: SEVERE CONSITIPATION Fluticasone Propionate (Flonase Nasal [place]) 2 spray EACH NARE DAILY [facility] Last Admin: 12/31/17 08:39 Dose: 2 spray Sodium Chloride (Ns Inj) 1,000 mls @ 100 mls/hr IV.CONT .Q10H [facility] Last Admin: 12/31/17 22:31 Dose: Not Given Lactulose (Lactulose Liq) 30 ml PO DAILY PRN PRN Reason: SEVERE CONSITIPATION Metoprolol Succinate (Toprol Xl) 25 mg PO BID [facility] Last Admin: 12/31/17 21:32 Dose: 25 mg Multivitamins (Theragran) 1 tab PO DAILY [facility] Last Admin: 12/31/17 08:38 Dose: 1 tab Naloxone HCl (Narcan Inj) 0.4 mg IV.PUSH UNSCH PRN PRN Reason: SEE LABEL COMMENTS Oxybutynin Chloride (Ditropan) 15 mg PO DAILY [facility] Last Admin: 12/31/17 08:37 Dose: 15 mg Patient Own Medication ( Diclofenac [Voltaren ] Gel) 0 each TOPICAL QID [facility] Sennosides (Senokot) 17.2 mg PO Q12H PRN PRN Reason: Moderate Constipation Sodium Chloride ([place] Nasal [place]) 1 spray EACH NARE Q4H [facility] Last Admin: 12/31/17 21:33 Dose: 1 spray Sodium Chloride (Ns Flush) 2 ml IV.FLUSH BID [facility] Last Admin: 12/31/17 21:32 Dose: 2 ml Sodium Chloride (Ns Flush) 2 ml IV.FLUSH PRN PRN PRN Reason: FLUSH AFTER USING IV ACCESS Zolpidem Tartrate (Ambien) 2.5 mg PO DAILY PRN PRN Reason: insomina Last Admin: 12/28/17 20:45 Dose: 2.5 mg Allergies Allergy/AdvReac Type Severity Reaction Status Date / Time penicillin G Allergy Severe HIVES Verified 12/27/17 22:15 Home Medications Medication Instructions Recorded Confirmed Type acetaminophen [Tylenol] 650 mg PO Q4H PRN 12/27/17 12/27/17 History aspirin [Aspir-81] 81 mg PO DAILY 12/27/17 12/27/17 History diclofenac sodium [Voltaren] 2 g TOPICAL QID 12/27/17 12/27/17 History fluticasone [Flonase Allergy 2 spray INTRANASAL DAILY 12/27/17 12/27/17 History Relief] oxybutynin chloride 15 mg PO DAILY 12/27/17 12/27/17 History rosuvastatin [Crestor] 10 mg PO DAILY 12/27/17 12/27/17 History sodium chloride [Saline Nasal] 1 spray INTRANASAL Q4H 12/27/17 12/27/17 History vit D3-folic [id number] 1 tab PO DAILY 12/27/17 12/27/17 History zolpidem [Ambien] 2.5 mg PO DAILY PRN 12/27/17 12/27/17 History Physical Exam Vital signs: Vital Signs 12/30/17 23:06 12/31/17 00:00 12/31/17 03:19 Temperature 98.3 F 98.9 F Pulse Rate 68 74 55 L Respiratory Rate 17 17 Blood Pressure 118/57 L 121/61 Pulse Oximetry 95 96 12/31/17 04:00 12/31/17 08:00 12/31/17 09:00 Temperature 98.3 F Pulse Rate 98 H 56 L 81 Respiratory Rate 18 Blood Pressure 129/57 L Pulse Oximetry 92 L 12/31/17 12:00 12/31/17 16:00 12/31/17 20:00 Temperature 97.5 F L 97.7 F 98.1 F Pulse Rate 62 55 L 65 Respiratory Rate 18 18 16 Blood Pressure 127/74 153/76 H 114/64 Pulse Oximetry 93 L 92 L 94 L Intake & Output 12/31/17 12/31/17 01/01/18 06:59 18:59 06:59 Intake Total 1480 / 1480 1160 / 1160 Output Total 450 / 450 Balance 1030 / 1030 1160 / 1160 Weight 76.6 kg Intake: IV 1000 / 1000 NS Inj 1,000 ML @ 100 mls/hr IV 1000 / 1000 .CONT .Q10H [facility] Rx#:[id number] Oral 480 / 480 1160 / 1160 Output: Urine 450 / 450 Other: # Voids 500 3 Date of Last Bowel Movement 12/29/17 12/29/17 12/29/17 # Bowel Movements 0 0 Narrative: GENERAL: NAD SKIN: Warm and dry. HEAD: Atraumatic. Normocephalic. EYES: Pupils equal and round. No scleral icterus. No injection or drainage. ENT: No nasal bleeding or discharge. Mucous membranes pink and moist. NECK: Trachea midline. No JVD. CARDIOVASCULAR: Regular rate and rhythm. RESPIRATORY: No accessory muscle use. Clear to auscultation. Breath sounds equal bilaterally. GASTROINTESTINAL: Abdomen soft, non-tender, nondistended. Hepatic and splenic margins not palpable. MUSCULOSKELETAL: Extremities without clubbing, cyanosis, or edema. Left hip wrapped NEUROLOGICAL: Awake and alert. No obvious cranial nerve deficits. Motor grossly within normal limits. Five out of 5 muscle strength in the arms and legs. Normal speech. PSYCHIATRIC: Appropriate mood and affect; insight and judgment normal. Results 12/27/17 22:50 12/29/17 06:44 Intake and Output 12/31/17 12/31/17 12/31/17 06:59 14:59 22:59 Intake Total 1480 / 1480 1160 / 1160 Balance 1480 / 1480 1160 / 1160 Intake: IV 1000 / 1000 NS Inj 1,000 ML @ 100 mls/hr IV 1000 / 1000 .CONT .Q10H [facility] Rx#:[id number] Oral 480 / 480 1160 / 1160 Other: # Voids 500 3 Date of Last Bowel Movement 12/29/17 12/29/17 # Bowel Movements 0 0 Weight 76.6 kg Assessment and Plan - Assessment (1) Asymptomatic PVCs Code(s): I49.3 - Ventricular premature depolarization Status: Acute (2) Closed left hip fracture Code(s): S72.002A - Fracture of unspecified part of neck of left femur, initial encounter for closed fracture Status: Acute (3) CAD (coronary atherosclerotic disease) Code(s): I25.10 - Atherosclerotic heart disease of [place] coronary artery without angina pectoris Status: Chronic (4) Intertrochanteric fracture of left femur Code(s): S72.142A - Displaced intertrochanteric fracture of left femur, initial encounter for closed fracture Status: Acute - Plan 1) Closed hip fracture s/p nailing POD #2 2) 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
[2018-01-01] MEDS: Sodium Chloride 0.65% Nasal Spray 45 ML Bottle EACH NARE SCH ×4 (03:35→15:42)
[2018-01-01 05:43] LABS: Hematocrit 32.9 % (39.0-51.0); Hemoglobin 11.2 gm/dL (13.0-17.0); Mean Corpuscular Hemoglobin 31.9 pg (27.0-34.0); Mean Platelet Volume 9.6 fL (7.0-11.0); Platelet Count 111 th/mm3 (150-450); Red Cell Distribution Width 13.4 % (11.6-17.2); White Blood Count 9.3 th/mm3 (4.0-11.0)
[2018-01-01 06:12] LABS: Calcium 8.3 mg/dL (8.5-10.1); Carbon Dioxide 25.4 meq/L (21.0-32.0); Potassium 4.2 meq/L (3.5-5.1)
[2018-01-01] MEDS: Sod Chloride 0.9% Inj 1,000 ML IV.CONT SCH ×2 (06:18→15:42)
--- NOTE | 2018-01-01 08:29 | P.DS ---
Date of admission: 12/28/17 00:19 Primary care physician: Jose Rodas DO Brief History from admission: 87-year-old male with a history of CAD status post CABG, hyperlipidemia who presents following fall in [employer] around 4 PM. Patient says he is not sure if he fell or if his hip gave out. He does not remember falling. He denies any chest pains or palpitations. Denies any lightheadedness or dizziness .. Reports extreme constant dull pain in left hip, worse with movement, unable to put weight on left hip. Patient did drink a glass of scotch prior to going to [employer] DS: Diagnosis - Discharge Diagnosis (1) Closed left hip fracture Status: Acute (2) Hyperlipidemia LDL goal <100 Status: Acute (3) CAD (coronary atherosclerotic disease) Status: Chronic DS: Summary Hospital Course: 87-year-old male with a history of CAD status post CABG, hyperlipidemia, sustained a fall in [employer], resulting in a left femur Fx. He is S/P cephalomedullary nailing left intertrochanteric femur fracture done on 12/29/17 . He had episode of pvc and tachycardia, seen by cardiology and started on metoprolol. He remained stable and is now cleared by ortho for rehab placement. - Time Spent with Patient 20 Less than 30 minutes - Quality: AMI Clinical Trial Participant: No - Quality: Stroke Symptom Onset Unknown: No - Quality: VTE Deep Vein Thrombosis/Pulmonary Embolism Present on Admission: No Exam Vital signs: Vital Signs 12/31/17 09:00 12/31/17 12:00 12/31/17 16:00 Temperature 97.5 F L 97.7 F Pulse Rate 81 62 55 L Respiratory Rate 18 18 Blood Pressure 127/74 153/76 H Pulse Oximetry 93 L 92 L 12/31/17 20:00 01/01/18 00:00 01/01/18 00:29 Temperature 98.1 F 97.3 F L Pulse Rate 87 84 Respiratory Rate 16 16 18 Blood Pressure 114/64 148/65 H Pulse Oximetry 94 L 94 L 01/01/18 04:00 01/01/18 04:50 Temperature 98.5 F Pulse Rate 65 Respiratory Rate 16 17 Blood Pressure 148/79 H Pulse Oximetry 95 Intake & Output 12/31/17 01/01/18 01/01/18 18:59 06:59 18:59 Intake Total 1160 / 1160 Output Total 350 / 350 Balance 1160 / 1160 -350 / -350 Weight 76.6 kg Intake: Oral 1160 / 1160 Output: Urine 350 / 350 Other: # Voids 3 Date of Last Bowel Movement 12/29/17 12/29/17 # Bowel Movements 0 - Constitutional no acute distress - Routine HEENT Exam Head: Present: normocephalic Eye: Present: PERRL ENT: Present: mucous membranes moist - Routine Neck Exam Present: supple - Routine Respiratory Exam Present: CTA bilaterally - Routine Cardiovascular Exam Present: S1, S2 - Routine Abdominal Exam Present: soft, normoactive bowel sounds - Routine Extremities Exam Present: tenderness Comments: left hip - Routine Skin Exam Present: dry, warm Comments: left hip dsg C/D/I - Routine Neurological Exam Present: alert, oriented X3 Results Procedures completed during hospitalization: na Labs on day of discharge: Labs from last 24 hours 01/01/18 01/01/18 04:40 04:40 WBC 9.3 RBC 3.50 L Hgb 11.2 L Hct 32.9 L MCV 94.0 MCH 31.9 MCHC 34.0 RDW 13.4 Plt Count 111 L MPV 9.6 Sodium 138 Potassium 4.2 Chloride 104 Carbon Dioxide 25.4 Anion Gap 9 BUN 36 H Creatinine 1.42 H Estimated GFR 47 L Random Glucose 109 H Calcium 8.3 L - Impressions ITS Impressions Femur X-Ray 12/27/17 22:36 CONCLUSION: Intertrochanteric fracture of the left hip. Pelvis X-Ray 12/27/17 22:36 CONCLUSION: Intertrochanteric fracture of the left hip Head CT 12/27/17 22:37 CONCLUSION: 1. No acute findings in the brain. 2. Bilateral lacunar infarcts and areas of decreased attenuation in the supratentorial white matter suggesting ischemic etiology. . Hip X-Ray 12/29/17 00:00 CONCLUSION: Satisfactory operative appearance Discharge Plan - Discharge Disposition Patient Disposition: 62 Rehab Inpatient - Discharge Condition Condition: Good - Discharge Order Discharge Orders: Discharge Order (Routine); Ordered 01/01/18 Ordered By: Ramona Olivas - Discharge Details Anticipated Discharge Date: 01/01/18 Discharge Comment: DC when Arrangement's made - Physicians Team Primary Care Provider: Jose Rodas Attending Provider: Jose Rodas Other Providers: Ashley Correia MD ; Lizabeth Mejia MD
[2018-01-01 10:59] VITALS: RESP 18
[2018-01-01] MEDS: Sodium Chloride 0.9% 2 ML Flush BID IV.FLUSH SCH (11:16)
[2018-01-01 14:02] VITALS: BP 120/55; PULSE 54; TEMP 97.5; O2SAT 97
== END 2018-01-01 17:09 ==
LOC: NEPC 21:38 → NEDA 12-28 00:19 → N06 12-28 01:15
PROVIDERS: ADMIT Family Medicine; ATTEND Family Medicine

== ENCOUNTER 2018-02-11 02:27 | Inpatient (IN) ==
[2018-02-11] MEDS ORDERED: Metoprolol Inj 5 MG/5 ML Vial IV.PUSH ONE (02:45)
[2018-02-11] MEDS ORDERED: Morphine Inj 4 MG/ML Vial IV.PUSH ONE (02:52)
[2018-02-11] MEDS ORDERED: Sodium Chlor 0.9% Inj 250 ML IV.SIG ONE (02:52)
[2018-02-11 03:24] LABS: Baso # (Auto) 0.1 th/mm3 (0.0-0.2); Baso % (Auto) 0.6 % (0.0-2.0); Eos # (Auto) 0.4 th/mm3 (0.0-0.4); Eos % (Auto) 3.8 % (0.0-4.0); Hematocrit 36.2 % (39.0-51.0); Hemoglobin 12.3 gm/dL (13.0-17.0); Lymph # (Auto) 3.5 th/mm3 (1.0-4.8); Lymph % (Auto) 30.7 % (9.0-44.0); Mean Corpuscular HGB Conc 33.9 % (32.0-36.0); Mean Corpuscular Hemoglobin 31.9 pg (27.0-34.0); Mean Platelet Volume 9.1 fL (7.0-11.0); Mono # (Auto) 0.9 th/mm3 (0.0-0.9); Mono % (Auto) 7.6 % (0.0-8.0); Neut # (Auto) 6.4 th/mm3 (1.8-7.7); Neut % (Auto) 57.3 % (16.0-70.0); Platelet Count 143 th/mm3 (150-450); Red Blood Count 3.85 mil/mm3 (4.50-5.90); Red Cell Distribution Width 14.3 % (11.6-17.2); White Blood Count 11.3 th/mm3 (4.0-11.0)
--- NOTE | 2018-02-11 03:32 | ED ---
HPI General Chief complaint: Extremity Injury, Lower Stated complaint: medical Time Seen by Provider: 02/11/18 02:45 Source: patient and EMS Mode of arrival: EMS Limitations: no limitations History of Present Illness HPI narrative: The patient is an 87 year old male who presents to the [facility] emergency department with a history of reportedly getting up to urinate prior to arrival when he lost his balance and fell on his left side. The patient reports that he then noticed deformity of the left leg. According to ambulance services when they arrived the patient had notable deformity of the femur. The patient is recently postop after having a repair of an intertrochanteric femur fracture on that left side. The patient in route to this facility was having runs of V. tach with a pulse according to ambulance services. The patient denies having any chest pain, chest pressure, or new shortness of breath. He denies hitting his head with the fall, or having any loss of consciousness. He denies having any numbness or tingling to his extremities, or or new weakness of his extremities. The patient had IV access obtained prior to arrival by ambulance services and was given a total of 6 mg of morphine IV. Related Data Previous Rx's Medication Instructions Recorded acetaminophen [Tylenol] 650 mg PO Q6HR PRN #120 cap 01/15/18 aspirin [Aspir-81] 81 mg PO DAILY 30 Days #30 tab 01/15/18 fluticasone [Flonase Allergy 2 spray INTRANASAL DAILY 30 Days 01/15/18 Relief] ml hydrocodone-acetaminophen 1 tab PO BID PRN #10 tab 01/15/18 multivitamin with folic acid 1 tab PO DAILY 30 Days #30 tab 01/15/18 [Thera] oxybutynin chloride 15 mg PO DAILY 30 Days #30 tab 01/15/18 pantoprazole 40 mg PO DAILY #30 tab 01/15/18 rosuvastatin [Crestor] 10 mg PO DAILY 30 Days #60 tab 01/15/18 sennosides-docusate sodium [Senna 1 tab PO BID 30 Days #60 tab 01/15/18 Plus] sodium chloride [Saline Nasal] 1 spray INTRANASAL Q4H 30 Days ml 01/15/18 vit D3-folic [id number] 1 tab PO DAILY 30 Days #30 tab 01/15/18 Allergies Allergy/AdvReac Type Severity Reaction Status Date / Time penicillin G Allergy Severe HIVES Verified 02/11/18 02:42 Review of Systems ROS: all other systems reviewed are negative PMFSH Family History Family History Mother Unknown family medical history Father Motor vehicle accident (victim) Social History Social History Substance History: No History of Abuse Second Hand Smoke Exposure: No Smoking Status: Former smoker Tobacco Type: Pipe How Often Do You Have a Drink Containing Alcohol: 2 to 4 times a month Hx Recent Travel: No Recent Travel in [facility] within the Last 8 Weeks: No Recent Out of Country Travel within the Last 8 Weeks: No Immunization History Tetanus Immunization: Unsure Exam Const General: cooperative, no acute distress and well developed Nutritional Appearance: well nourished Orientation: alert, awake and oriented x3 HENMT Head: normocephalic and atraumatic Nose: no nasal discharge and no epistaxis Mouth: moist mucous membranes Throat: posterior oropharynx normal and uvula midline Eyes Sclera: normal sclerae Pupils: PERRL Neck Neck: no meningeal signs, trachea midline and no JVD Resp Effort & Inspection: no use of accessory muscles Auscultation: clear to auscultation bilaterally Cardio Rate: tachycardic (At times into the low 100s.) Rhythm: abnormal rhythm (With runs of V. tach noted with the pulse.) irregularly irregular Heart Sounds: no murmurs GI Inspection: non-distended Palpation: soft, no hepatosplenomegaly and nontender Back/Spine/Pelvis Back: no CVA tenderness Skin General: dry skin (warm) Neuro General: alert, awake, oriented x3 and other (Grossly nonfocal.) Speech: speech normal Motor: no movement abnormalities noted Extrem General: no clubbing, no cyanosis, no edema and other (On examination of bilateral upper extremities, the patient has no deformity and full range of motion with full strength. The patient has full range of motion and full strength without any pain on palpation of the right side. The patient on examination of the left side has deformity, swelling noted along the distal femur, lateral aspect. The patient is maintaining his knee flexed and his hip flexed up on the bed. The patient reports that this is the position that he is most comfortable. The patient has soft compartments. The patient has intact sensation over all digits. The patient has less than 3-second capillary refill. The patient has 2+ pulses in all 4 extremities.) Psych Mood: congruent mood Affect: normal affect Judgment: judgment good Course Consultations Consultation #1: The patient's case including history, pertinent physical examination findings, and laboratory studies were discussed with Ramona, the ASHLEY for Dr. Rodas. It was agreed that the patient would be admitted to Dr. Rodas 's service. Time: 04:22 Initial Documented Vital Signs Temperature 98.7 F 02/11/18 02:33 Pulse Rate 74 02/11/18 02:33 Respiratory Rate 18 02/11/18 02:33 Blood Pressure 132/96 H 02/11/18 02:33 Pulse Oximetry 98 02/11/18 02:33 Last Documented Vital Signs Temperature 98.6 F 02/11/18 18:15 Pulse Rate 65 02/11/18 18:15 Respiratory Rate 15 02/11/18 18:15 Blood Pressure 123/60 02/11/18 18:15 Pulse Oximetry 94 L 02/11/18 18:15 Medical Decision Making [facility] Narrative Medical decision making narrative: During the course of the patient's emergency department visit, the patient's history, examination, and differential diagnosis were reviewed with the patient. The patient was placed on a pvc monitor with oximetry and frequent blood pressure monitoring. The patient had IV access obtained and blood work sent for analysis. A diagnostic evaluation was started regarding the patient's fall. The patient had pacer pads placed on his chest. The patient was initially provided metoprolol 5 mg IV for treatment of his runs of V. tach. The patient was placed on 2 L nasal cannula O2. The patient was given morphine 4 mg IV for pain, Zofran 4 mg IV for nausea. The patient's left leg was assisted out of the flexed position and laid on pillow supporting the underside of the knee. The patient's diagnostic studies are remarkable for a white count of 11.3, hemoglobin 12.3, platelets are 143 in a patient with a history of thrombocytopenia from reviewing the record, differential within normal limits, chemistry is remarkable for a chloride of 108, BUN 26, creatinine 1.40, glucose 116, calcium 8.2, cardiac enzymes within normal limits, BNP is 244, albumin 3.3. The patient's tib-fib x-ray showed no acute abnormality, pelvis x-ray showed no acute abnormality, femur x-ray reveals a midshaft displaced femur fracture. The patient will be placed in Spaulding's traction. The patient will be admitted to the hospital for evaluation by the orthopedic physician that did his original left hip surgery, . The patient's case including history, pertinent physical examination findings, and laboratory studies were discussed with Dr. Clark Greene's ASHLEY. It was agreed that the patient would be admitted to Dr. Rodas's service. The patient's results were discussed with the patient, including the plan of care. I explained that further testing and/ or monitoring is indicated based on the patient's history, examination, and/ or laboratory findings. Therefore, I recommended admission for additional evaluation. The patient expressed understanding and was agreeable with this plan. The patient was admitted to the hospital in guarded condition and sent to a bed under the care of Dr. Rodas's Service. Medical Screen Exam Complete: Yes Emergency Medical Condition: Yes Differential Diagnosis Differential Diagnosis: Left femur fracture, versus tibia and fibula fracture, versus pelvis fracture, versus hip dislocation Medical Records Medical records reviewed: Yes I reviewed the patient's medical records. Lab Data Lab results reviewed: Yes I reviewed the patient's lab results. Result diagrams: 02/11/18 02:56 02/11/18 02:56 Lab Results 02/11/18 02/11/18 02/11/18 Range/Units 02:56 02:56 02:56 WBC 11.3 H (4.0-11.0) th/mm3 RBC 3.85 L (4.50-5.90) mil/mm3 Hgb 12.3 L (13.0-17.0) gm/dL Hct 36.2 L (39.0-51.0) % MCV 94.0 (80.0-100.0) fL MCH 31.9 (27.0-34.0) pg MCHC 33.9 (32.0-36.0) % RDW 14.3 (11.6-17.2) % Plt Count 143 L (150-450) th/mm3 MPV 9.1 (7.0-11.0) fL Neut % (Auto) 57.3 (16.0-70.0) % Lymph % (Auto) 30.7 (9.0-44.0) % [place] % (Auto) 7.6 (0.0-8.0) % Eos % (Auto) 3.8 (0.0-4.0) % Baso % (Auto) 0.6 (0.0-2.0) % Neut # (Auto) 6.4 (1.8-7.7) th/mm3 Lymph # (Auto) 3.5 (1.0-4.8) th/mm3 Independence # (Auto) 0.9 (0.0-0.9) th/mm3 Eos # (Auto) 0.4 (0.0-0.4) th/mm3 Baso # (Auto) 0.1 (0.0-0.2) th/mm3 WBC Differential . Differential Comment Auto diff final PT 9.6 L (9.8-11.6) sec INR 0.9 Ratio APTT 25.8 (23.4-31.7) sec Sodium 142 (136-145) meq/L Potassium 5.0 (3.5-5.1) meq/L Chloride 108 H (98-107) meq/L Carbon Dioxide 25.7 (21.0-32.0) meq/L Anion Gap 8 (5-15) meq/L BUN 26 H (7-18) mg/dL Creatinine 1.40 H (0.60-1.30) mg/dL Estimated GFR 48 L (>89) mL/min POC Glucose (68-110) mg/dl Random Glucose 116 H (74-106) mg/dL Calcium 8.2 L (8.5-10.1) mg/dL Calcium Adj for Albumin Magnesium (1.5-2.5) mg/dL Total Bilirubin 0.4 (0.2-1.0) mg/dL AST 36 (15-37) U/L ALT 19 (12-78) U/L Alkaline Phosphatase 111 (45-117) U/L Total Creatine Kinase 120 (39-308) U/L CK-MB (CK-2) Less than 1.0 (0.5-3.6) ng/mL Troponin I Less than 0.02 L (0.02-0.05) ng/mL B-Natriuretic Peptide (0-100) pg/mL Total Protein 7.3 (6.4-8.2) g/dL Albumin 3.3 L (3.4-5.0) g/dL 02/11/18 02/11/18 02/11/18 Range/Units 02:56 02:56 08:37 WBC (4.0-11.0) th/mm3 RBC (4.50-5.90) mil/mm3 Hgb (13.0-17.0) gm/dL Hct (39.0-51.0) % MCV (80.0-100.0) fL MCH (27.0-34.0) pg MCHC (32.0-36.0) % RDW (11.6-17.2) % Plt Count (150-450) th/mm3 MPV (7.0-11.0) fL Neut % (Auto) (16.0-70.0) % Lymph % (Auto) (9.0-44.0) % Independence % (Auto) (0.0-8.0) % Eos % (Auto) (0.0-4.0) % Baso % (Auto) (0.0-2.0) % Neut # (Auto) (1.8-7.7) th/mm3 Lymph # (Auto) (1.0-4.8) th/mm3 Independence # (Auto) (0.0-0.9) th/mm3 Eos # (Auto) (0.0-0.4) th/mm3 Baso # (Auto) (0.0-0.2) th/mm3 WBC Differential Differential Comment PT (9.8-11.6) sec INR Ratio APTT (23.4-31.7) sec Sodium Cancelled (136-145) meq/L Potassium Cancelled (3.5-5.1) meq/L Chloride Cancelled (98-107) meq/L Carbon Dioxide Cancelled (21.0-32.0) meq/L Anion Gap Cancelled (5-15) meq/L BUN Cancelled (7-18) mg/dL Creatinine Cancelled (0.60-1.30) mg/dL Estimated GFR Cancelled (>89) mL/min POC Glucose 122 H (68-110) mg/dl Random Glucose Cancelled (74-106) mg/dL Calcium Cancelled (8.5-10.1) mg/dL Calcium Adj for Albumin Cancelled Magnesium 2.4 (1.5-2.5) mg/dL Total Bilirubin Cancelled (0.2-1.0) mg/dL AST Cancelled (15-37) U/L ALT Cancelled (12-78) U/L Alkaline Phosphatase Cancelled (45-117) U/L Total Creatine Kinase (39-308) U/L CK-MB (CK-2) (0.5-3.6) ng/mL Troponin I (0.02-0.05) ng/mL B-Natriuretic Peptide 244 H (0-100) pg/mL Total Protein Cancelled (6.4-8.2) g/dL Albumin Cancelled (3.4-5.0) g/dL Imaging Data Radiologist's impression: Chest X-Ray 02/11/18 02:46 CONCLUSION: Central pulmonary vascular congestion. Femur X-Ray 02/11/18 02:46 CONCLUSION: Displaced mid femoral shaft fracture. At the level of the inferior margin of the surgical hardware. Pelvis X-Ray 02/11/18 02:46 CONCLUSION: No evidence of acute fracture. Tibia/Fibula X-Ray 02/11/18 02:46 CONCLUSION: No evidence of fracture of the lower leg. ECG Data Attestation: I personally reviewed and interpreted this ECG as follows: Interpretation: The patient had an EKG done on arrival. The patient's EKG revealed episodes of V. tach with a run of V. tach that is 10 beats long. After metoprolol 5 mg IV was administered, the patient was noted to be in an irregular rhythm with occasional PVCs, heart rate of 72, QRS duration 123 ms, QTC [address] segment elevation. Discharge Plan Discharge Disposition Patient Disposition: ED Admit(ED Internal Use Only) Discharge Order Discharge Orders: ED Use Only Admit Order (Routine); Ordered 02/11/18 Ordered By: Jonelle Javier Discharge Details Diagnosis: Fracture of femur Physicians Team ED Provider: Jonelle Javier Primary Care Provider: Jose Rodas Attending Provider: Jose Rodas Other Providers: Dilan Mcallister ; [facility],Insurance ; [place] ; Tyler Marquez Status ED Status: Left Department Discharge Information Discharge Date/Time: 02/11/18 06:14
[2018-02-11 03:34] LABS: Activated Partial Thrombo Time 25.8 sec (23.4-31.7); INR 0.9 Ratio; Prothrombin Time 9.6 sec (9.8-11.6)
[2018-02-11 03:48] LABS: Alanine Aminotransferase 19 U/L (12-78); Albumin 3.3 g/dL (3.4-5.0); Alkaline Phosphatase 111 U/L (45-117); Anion Gap 8 meq/L (5-15); Aspartate Aminotransferase 36 U/L (15-37); Blood Urea Nitrogen 26 mg/dL (7-18); Calcium 8.2 mg/dL (8.5-10.1); Carbon Dioxide 25.7 meq/L (21.0-32.0); Chloride 108 meq/L (98-107); Creatine Kinase 120 U/L (39-308); Glomerular Filtration Rate 48 mL/min (>89); Glucose,Random 116 mg/dL (74-106); Sodium 142 meq/L (136-145); Total Protein 7.3 g/dL (6.4-8.2)
--- NOTE | 2018-02-11 04:02 | XR ---
EXAM DATE: 02/11/2018 3:48 AM EST AGE/SEX: 87 years / Male INDICATIONS: Fall, trauma. CLINICAL DATA: This is the patient's initial encounter. Patient reports that signs and symptoms have been present for 1 day and indicates a pain score of 0/10. MEDICAL/SURGICAL HISTORY: Non-responsive. CABG. COMPARISON: No prior exams available for comparison. FINDINGS: Single AP view the chest. Median sternotomy wires. Central pulmonary vasculature prominence. No evide nce of focal consolidation, pleural effusion, or pneumothorax. Cardiomediastinal silhouette within no rmal limits. CONCLUSION: Central pulmonary vascular congestion. Electronically signed by: George Patricia MD 02/11/2018 4:01 AM EST
--- NOTE | 2018-02-11 04:03 | XR ---
EXAM DATE: 02/11/2018 3:50 AM EST AGE/SEX: 87 years / Male INDICATIONS: Fall, trauma. CLINICAL DATA: This is the patient's initial encounter. Patient reports that signs and symptoms have been present for 1 day and indicates a pain score of 10/10. MEDICAL/SURGICAL HISTORY: None. None. COMPARISON: [facility] [place], PELVIS AP 1V, 12/27/2017. . FINDINGS: Single AP view of the pelvis. Left-sided hip screw is in place. Metallic densities in the region of t he prostate indicating seed implants again seen. 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 Degenerative findings lower lumbar spine unchanged. No evidence of fracture. CONCLUSION: No evidence of acute fracture. Electronically signed by: George Patricia MD 02/11/2018 4:02 AM EST
--- NOTE | 2018-02-11 04:04 | XR ---
EXAM DATE: 02/11/2018 3:50 AM EST AGE/SEX: 87 years / Male INDICATIONS: Fall, leg pain. CLINICAL DATA: This is the patient's initial encounter. Patient reports that signs and symptoms have been present for 1 day and indicates a pain score of 10/10. MEDICAL/SURGICAL HISTORY: None. . Left troch nail. COMPARISON: No prior exams available for comparison. FINDINGS: 4 views of the left femur. Left-sided hip screw and intramedullary valeria of the proximal left femur is identified. There is a mid left femoral shaft fracture with one bone width anterior and medial displa cement of the distal fragment. The fracture is at the level the distal tip of the intramedullary valeria. Hip joint alignment within normal limits. Knee joint alignment within normal limits. Diffuse arteria l calcification. CONCLUSION: Displaced mid femoral shaft fracture. At the level of the inferior margin of the surgical hardware. Electronically signed by: George Patricia MD 02/11/2018 4:03 AM EST
--- NOTE | 2018-02-11 04:07 | XR ---
EXAM DATE: 02/11/2018 3:52 AM EST AGE/SEX: 87 years / Male INDICATIONS: Pain in left leg. Fall. CLINICAL DATA: This is the patient's initial encounter. Patient reports that signs and symptoms have been present for 1 day and indicates a pain score of 5/10. MEDICAL/SURGICAL HISTORY: None. None. COMPARISON: No prior exams available for comparison. FINDINGS: 4 views of the left lower leg. Bone alignment within normal limits. No evidence of fracture. Arterial calcification noted. CONCLUSION: No evidence of fracture of the lower leg. Electronically signed by: George Patricia MD 02/11/2018 4:05 AM EST
[2018-02-11] MEDS ORDERED: Acetaminophen 325 MG Tablet PO PRN (04:52)
[2018-02-11] MEDS ORDERED: Bisacodyl 10 MG Supp RECTAL PRN (04:52)
[2018-02-11] MEDS ORDERED: Morphine Sulfate Inj 2 MG/ML Vial IV.PUSH PRN (06:48)
--- NOTE | 2018-02-11 08:20 | ECG ---
Date Performed: 02/11/2018 Time Performed: 02:50:33 PTAGE: 87 years EKG: Sinus rhythm with frequent premature atrial complexes and short atrial runs with aberrancy MARKED RIGHT AXIS TIESHA ATION RIGHT BUNDLE BRANCH BLOCK MARKED ST DEPRESSION, CONSIDER SUBENDOCARDIAL INJURY ABNORMAL ECG WA RNING: DATA QUALITY MAY AFFECT INTERPRETATION PREVIOUS TRACING : 12/27/2017 22.41 DOCTOR: Pato Ray Interpretating Date/Time 02/11/2018 08:19:45
--- NOTE | 2018-02-11 08:20 | ECG ---
Date Performed: 02/11/2018 Time Performed: 03:06:58 PTAGE: 87 years EKG: Normal Sinus rhythm with premature ventricular and premature atrial complexes MODERATE INTRAVENTRICULAR CONDUCTION DELAY NONSPECIFIC T-WAVE ABNORMALITY ABNORMAL ECG PREVIOUS TRACING : 02/11/2018 02.50 DOCTOR: Pato Ray Interpretating Date/Time 02/11/2018 08:18:02
[2018-02-11] MEDS: Senna/Docusate Sodium 8.6/50 MG Tablet PO SCH ×2 (10:04→20:26)
[2018-02-11] MEDS: Morphine Sulfate Inj 2 MG/ML Vial IV.PUSH PRN ×2 (10:39→17:30)
--- NOTE | 2018-02-11 12:16 | ECG ---
Date Performed: 02/11/2018 Time Performed: 09:09:18 PTAGE: 87 years EKG: --- Warning: Data quality may affect interpretation --- Sinus arrhythmia with PVC(s) with 1 st degree A-V block. Leftward axis ST junctional depression is nonspecific Abnormal ECG PREVIOUS TRACING : 02/11/2018 03.06 DOCTOR: Pato Ray Interpretating Date/Time 02/11/2018 12:14:00
--- NOTE | 2018-02-11 12:57 | P.HPFP ---
History of Present Illness Primary Care Physician: Jose Rodas DO History of Present Illness: patient is an 87 year old male who presents to the [facility] emergency department via evac, s/p fall striking is left side. The patient is recently postop after having a repair of an intertrochanteric femur fracture on that left side early this January. Patient was found to be having runs of V tach in ambulance. He denied any Cp, SOB more than baseline, Palpations or pressure. Ortho and cardiology has been consulted. - Diagnosis (1) Fracture of femur (2) V tach (3) CAD (coronary atherosclerotic disease) Inpatient Certification: I certify that the inpatient services were ordered in accordance with Medicare regulations governing the order. This includes certification that hospital inpatient services are reasonable and necessary and in the case of services not specified as inpatient-only under 42 CFR 419.22(n), that they are appropriately provided as inpatient services in accordance to with the 2-midnight benchmark under 43 CFR 412.3(e) Estimated Total Length of Stay (Days): 3 Plans for Post Hospital Care: SNF [facility] - History History Provided By: Patient, Family Member - Medical History Medical History: Medical History (Last Updated 02/11/18 @ 06:41 by Xenia Goddard RN) History of prostate cancer Hx of fall Hx of myocardial infarction Hyperlipidemia - Surgical History Surgical History: Surgical History (Last Updated 02/11/18 @ 06:41 by Xenia Goddard RN) H/O hernia repair History of hip surgery Hx of CABG - Family History Family History: Family History (Last Reviewed 02/11/18 @ 03:27 by Jonelle Javier MD) Mother Unknown family medical history Father Motor vehicle accident (victim) - Tobacco History Second Hand Smoke Exposure: No Tobacco Use In Past 30 Days: No Smoking Status: Former smoker Tobacco Type: Pipe - Alcohol History How Often Do You Have a Drink Containing Alcohol: 2 to 4 times a month - Substance Use History Substance History: No History of Abuse - Travel History History of Recent Travel: No Recent Travel in the [place] Within the Last 8 Weeks: No Recent Travel Out of the Country Within the Last 8 Weeks: No - Immunization History Tetanus Immunization: Unsure Medications and Allergies Active Medications: Active Medications Acetaminophen (Tylenol) 650 mg PO Q4H PRN PRN Reason: Temp > 100.4 Hydrocodone Bitart/Acetaminophen ([place] 5/325) 1 tab PO Q4H PRN PRN Reason: pain 3-6 Last Admin: 02/11/18 10:39 Dose: 1 tab Hydrocodone Bitart/Acetaminophen ([place] 7.5/325) 1 tab PO Q4H PRN PRN Reason: pain 7-10 Al Hydroxide/Mg Hydroxide (Milk Of Magnesia Liq) 30 ml PO Q12H PRN PRN Reason: Mild Constipation Bisacodyl (Dulcolax Supp) 10 mg RECTAL DAILY PRN PRN Reason: SEVERE CONSITIPATION Lactulose (Lactulose Liq) 30 ml PO DAILY PRN PRN Reason: SEVERE CONSITIPATION Morphine Sulfate (Morphine Inj) 2 mg IV.PUSH Q4H PRN PRN Reason: PAIN 3-10 Last Admin: 02/11/18 10:39 Dose: 2 mg Ondansetron HCl (Zofran Inj) 4 mg IV.PUSH Q6H PRN PRN Reason: NAUSEA OR VOMITING Senna/Docusate Sodium (Yolis-Colace) [address] [facility] Last Admin: 02/11/18 10:04 Dose: Not Given Sennosides (Senokot) 17.2 mg PO Q12H PRN PRN Reason: Moderate Constipation Sodium Chloride (Ns Flush) [address] [facility] Last Admin: 02/11/18 10:04 Dose: 2 ml Sodium Chloride (Ns Flush) 2 ml IV.FLUSH PRN PRN PRN Reason: FLUSH AFTER USING IV ACCESS Allergies Allergy/AdvReac Type Severity Reaction Status Date / Time penicillin G Allergy Severe HIVES Verified 02/11/18 02:42 Exam Vital signs: Vital Signs 02/11/18 02:33 02/11/18 02:42 02/11/18 06:29 Temperature 98.7 F 97.8 F Pulse Rate 74 102 H 85 Respiratory Rate 18 18 17 Blood Pressure 132/96 H 150/73 H 153/69 H Pulse Oximetry 98 97 97 Intake & Output 02/10/18 02/11/18 02/11/18 18:59 06:59 18:59 Intake Total 250 / 250 Balance 250 / 250 Weight 81.647 kg Intake: IV 250 / 250 NS Inj 250 ML @ Wide Open IV. 250 / 250 SIG BOLUS ONE Rx#:[id number] - Constitutional no acute distress - Routine HEENT Exam ENT: Present: mucous membranes moist - Routine Respiratory Exam Present: CTA bilaterally - Routine Cardiovascular Exam Present: S1, S2, tachycardia - Routine Abdominal Exam Present: soft - Routine Extremities Exam Present: tenderness (left ) - Routine Skin Exam Present: intact, dry, warm - Routine Neurological Exam Present: alert, oriented X3 Results - Labs Result diagrams: 02/11/18 02:56 02/11/18 02:56 Abnormal lab results 02/11/18 02/11/18 02/11/18 Range/Units 02:56 02:56 02:56 WBC 11.3 H (4.0-11.0) th/mm3 RBC 3.85 L (4.50-5.90) mil/mm3 Hgb 12.3 L (13.0-17.0) gm/dL Hct 36.2 L (39.0-51.0) % Plt Count 143 L (150-450) th/mm3 PT 9.6 L (9.8-11.6) sec Chloride 108 H (98-107) meq/L BUN 26 H (7-18) mg/dL Creatinine 1.40 H (0.60-1.30) mg/dL Estimated GFR 48 L (>89) mL/min POC Glucose (68-110) mg/dl Random Glucose 116 H (74-106) mg/dL Calcium 8.2 L (8.5-10.1) mg/dL Troponin I Less than 0.02 L (0.02-0.05) ng/mL B-Natriuretic Peptide (0-100) pg/mL Albumin 3.3 L (3.4-5.0) g/dL 18 02/11/18 Range/Units 02:56 08:37 WBC (4.0-11.0) th/mm3 RBC (4.50-5.90) mil/mm3 Hgb (13.0-17.0) gm/dL Hct (39.0-51.0) % Plt Count (150-450) th/mm3 PT (9.8-11.6) sec Chloride (98-107) meq/L BUN (7-18) mg/dL Creatinine (0.60-1.30) mg/dL Estimated GFR (>89) mL/min POC Glucose 122 H (68-110) mg/dl Random Glucose (74-106) mg/dL Calcium (8.5-10.1) mg/dL Troponin I (0.02-0.05) ng/mL B-Natriuretic Peptide 244 H (0-100) pg/mL Albumin (3.4-5.0) g/dL Short CBC 02/11/18 Range/Units 02:56 WBC 11.3 H (4.0-11.0) th/mm3 Hgb 12.3 L (13.0-17.0) gm/dL Hct 36.2 L (39.0-51.0) % Plt Count 143 L (150-450) th/mm3 BMP 02/11/18 02/11/18 02:56 02:56 Sodium 142 Cancelled Potassium 5.0 Cancelled Chloride 108 H Cancelled Carbon Dioxide 25.7 Cancelled BUN 26 H Cancelled Creatinine 1.40 H Cancelled Calcium 8.2 L Cancelled Cardiac Enzymes 02/11/18 Range/Units 02:56 Total Creatine Kinase 120 (39-308) U/L CK-MB (CK-2) Less than 1.0 (0.5-3.6) ng/mL Troponin I Less than 0.02 L (0.02-0.05) ng/mL Liver Function 02/11/18 02/11/18 Range/Units 02:56 02:56 Total Bilirubin 0.4 Cancelled (0.2-1.0) mg/dL AST 36 Cancelled (15-37) U/L ALT 19 Cancelled (12-78) U/L Alkaline Phosphatase 111 Cancelled (45-117) U/L Albumin 3.3 L Cancelled (3.4-5.0) g/dL - Imaging Impressions Chest X-Ray 02/11/18 02:46 CONCLUSION: Central pulmonary vascular congestion. Femur X-Ray 02/11/18 02:46 CONCLUSION: Displaced mid femoral shaft fracture. At the level of the inferior margin of the surgical hardware. Pelvis X-Ray 02/11/18 02:46 CONCLUSION: No evidence of acute fracture. Tibia/Fibula X-Ray 02/11/18 02:46 CONCLUSION: No evidence of fracture of the lower leg. Caprini VTE Risk Assessment Caprini VTE Risk Assessment: Moderate/High Risk (score >= 2) Caprini Risk Assessment Model: Point Value = 1 Point Value = 2 Point Value = 3 Point Value = 5 Age 41-60 Minor surgery BMI > 25 kg/m2 Swollen legs Varicose veins or History of unexplained or recurrent spontaneous Oral contraceptives or hormone replacement Sepsis (< 1 month) Serious lung disease, including pneumonia (< 1 month) Abnormal pulmonary function Acute myocardial infarction Congestive heart failure (< 1 month) History of inflammatory bowel disease Medical patient at bed rest Age 61-74 Arthroscopic surgery Major open surgery (> 45 min) Laparoscopic surgery (> 45 min) Malignancy Confined to bed (> 72 hours) Immobilizing plaster cast Central venous access Age >= 75 History of VTE Family history of VTE Factor V Leiden Prothrombin [id number] Lupus anticoagulant Anticardiolipin antibodies Elevated serum homocysteine Heparin-induced thrombocytopenia Other congenital or acquired thrombophilia Stroke (< 1 month) Elective arthroplasty Hip, pelvis, or leg fracture Acute spinal cord injury (< 1 month) Prophylaxis Regimen: Total Risk Factor Score Risk Level Prophylaxis Regimen 0-1 Low Early ambulation 2 Moderate Order ONE of the following: *Sequential Compression Device (SCD) *Heparin 5000 units SQ BID 3-4 Higher Order ONE of the following medications: *Heparin 5000 units SQ TID *Enoxaparin/Lovenox 40 mg SQ daily (WT < 150 kg, CrCl > 30 mL/min) *Enoxaparin/Lovenox 30 mg SQ daily (WT < 150 kg, CrCl > 10-29 mL/min) *Enoxaparin/Lovenox 30 mg SQ BID (WT < 150 kg, CrCl > 30 mL/min) AND/OR *Sequential Compression Device (SCD) 5 or more Highest Order ONE of the following medications: *Heparin 5000 units SQ TID (Preferred with Epidurals) *Enoxaparin/Lovenox 40 mg SQ daily (WT < 150 kg, CrCl > 30 mL/min) *Enoxaparin/Lovenox 30 mg SQ daily (WT < 150 kg, CrCl > 10-29 mL/min) *Enoxaparin/Lovenox 30 mg SQ BID (WT < 150 kg, CrCl > 30 mL/min) AND *Sequential Compression Device (SCD) Assessment and Plan - Assessment (1) Fracture of femur Code(s): S72.90XA - Unspecified fracture of unspecified femur, initial encounter for closed fracture Status: Acute Plan: S/P fall Left femur fracture Ortho consulted, Npo pain management (2) V tach Code(s): I47.2 - Ventricular tachycardia Status: Acute Plan: transferred to [facility], Cardiology pending. Asymptomatic (3) CAD (coronary atherosclerotic disease) Code(s): I25.10 - Atherosclerotic heart disease of tejon coronary artery without angina pectoris Status: Chronic Plan: Cont home medications. H&P: Quality - VTE Deep Vein Thrombosis/Pulmonary Embolism Present on Admission: No (1) Fracture of femur Qualifiers: Encounter type: initial encounter Femur location: shaft Fracture type: closed Fracture morphology: unspecified fracture morphology Laterality: left Qualified Code(s): S72.302A - Unspecified fracture of shaft of left femur, initial encounter for closed fracture (3) CAD (coronary atherosclerotic disease) Qualifiers:
--- NOTE | 2018-02-11 15:27 | P.CONOP ---
[facility] Orthopedics Consult Note - [facility] Consult date: 02/11/18 Chief complaint: Left Femur Fracture, Runs of V Tach Narrative: Pradeep is an 87-year-old male. He had a fall in December 2017 resulting in a left hip intertrochanteric fracture. He was treated with intramedullary nail fixation. He fell again yesterday and landed on his left side. He had immediate left hip pain. He is unable to stand or ambulate. He presented to the emergency room where x-rays revealed a displaced left femur midshaft fracture. He is currently awake and alert. His only complaint is his left hip. He denies dizziness, syncope, or loss of consciousness. Pain is improved with rest. Pain is worse with movement. Review of Systems Patient denies fevers, chills, weight loss, headache, visual changes, hearing loss, chest pain, palpitations, shortness of breath, nausea, vomiting, no urinary changes, diarrhea, bowel changes, neck pain, back pain, skin rashes, weakness of extremities, easy bleeding, enlarged lymph nodes, numbness of extremities, anxiety, or depression. He complains of left hip and thigh pain Patient's social history, past medical history, and family history were reviewed on chart and with patient. PMFSH - History History Provided By: Patient, Family Member - Medical History Medical History: Medical History (Last Reviewed 02/11/18 @ 15:25 by Dilan Mcallister MD) History of prostate cancer Hx of fall Hx of myocardial infarction Hyperlipidemia - Surgical History Surgical History: Surgical History (Last Reviewed 02/11/18 @ 15:25 by Dilan Mcallister MD) H/O hernia repair History of hip surgery Hx of CABG - Family History Family History: Family History (Last Reviewed 02/11/18 @ 15:25 by Dilan Mcallister MD) Mother Unknown family medical history Father Motor vehicle accident (victim) - Social History I have reviewed the patient's Social History: Yes - Tobacco History Second Hand Smoke Exposure: No Tobacco Use In Past 30 Days: No Smoking Status: Former smoker Tobacco Type: Pipe - Alcohol History How Often Do You Have a Drink Containing Alcohol: 2 to 4 times a month - Substance Use History Substance History: No History of Abuse - Travel History History of Recent Travel: No Recent Travel in the [place] Within the Last 8 Weeks: No Recent Travel Out of the Country Within the Last 8 Weeks: No - Immunization History Tetanus Immunization: Unsure Medications and Allergies Active Medications: Active Medications Acetaminophen (Tylenol) 650 mg PO Q4H PRN PRN Reason: Temp > 100.4 Hydrocodone Bitart/Acetaminophen ([place] 5/325) 1 tab PO Q4H PRN PRN Reason: pain 3-6 Last Admin: 02/11/18 10:39 Dose: 1 tab Hydrocodone Bitart/Acetaminophen ([place] 7.5/325) 1 tab PO Q4H PRN PRN Reason: pain 7-10 Last Admin: 02/11/18 13:50 Dose: 1 tab Al Hydroxide/Mg Hydroxide (Milk Of Magnesia Liq) 30 ml PO Q12H PRN PRN Reason: Mild Constipation Bisacodyl (Dulcolax Supp) 10 mg RECTAL DAILY PRN PRN Reason: SEVERE CONSITIPATION Lactulose (Lactulose Liq) 30 ml PO DAILY PRN PRN Reason: SEVERE CONSITIPATION Morphine Sulfate (Morphine Inj) 2 mg IV.PUSH Q4H PRN PRN Reason: PAIN 3-10 Last Admin: 02/11/18 10:39 Dose: 2 mg Ondansetron HCl (Zofran Inj) 4 mg IV.PUSH Q6H PRN PRN Reason: NAUSEA OR VOMITING Senna/Docusate Sodium (Yolis-Colace) 1 tab PO BID [facility] Last Admin: 02/11/18 10:04 Dose: Not Given Sennosides (Senokot) 17.2 mg PO Q12H PRN PRN Reason: Moderate Constipation Sodium Chloride (Ns Flush) 2 ml IV.FLUSH BID [facility] Last Admin: 02/11/18 10:04 Dose: 2 ml Sodium Chloride (Ns Flush) 2 ml IV.FLUSH PRN PRN PRN Reason: FLUSH AFTER USING IV ACCESS Allergies Allergy/AdvReac Type Severity Reaction Status Date / Time penicillin G Allergy Severe HIVES Verified 02/11/18 02:42 Exam Vital signs: Vital Signs 02/11/18 02:33 02/11/18 02:42 02/11/18 06:29 Temperature 98.7 F 97.8 F Pulse Rate 74 102 H 85 Respiratory Rate 18 18 17 Blood Pressure 132/96 H 150/73 H 153/69 H Pulse Oximetry 98 97 97 02/11/18 08:00 Temperature Pulse Rate Respiratory Rate Blood Pressure Pulse Oximetry 98 Intake & Output 12/10/18 12/11/18 12/11/18 18:59 06:59 18:59 Intake Total 250 / 250 Balance 250 / 250 Weight 81.647 kg Intake: IV 250 / 250 NS Inj 250 ML @ Wide Open IV. 250 / 250 SIG BOLUS ONE Rx#:[id number] Results - Labs Result Diagrams: 02/11/18 02:56 02/11/18 02:56 Labs: Laboratory Results - last 24 hr 02/11/18 02/11/18 02/11/18 02:56 02:56 02:56 WBC 11.3 H RBC 3.85 L Hgb 12.3 L Hct 36.2 L MCV 94.0 MCH 31.9 MCHC 33.9 RDW 14.3 Plt Count 143 L MPV 9.1 Neut % (Auto) 57.3 Lymph % (Auto) 30.7 Richardson % (Auto) 7.6 Eos % (Auto) 3.8 Baso % (Auto) 0.6 Neut # (Auto) 6.4 Lymph # (Auto) 3.5 Richardson # (Auto) 0.9 Eos # (Auto) 0.4 Baso # (Auto) 0.1 WBC Differential . Differential Comment Auto diff final PT 9.6 L INR 0.9 APTT 25.8 Sodium 142 Potassium 5.0 Chloride 108 H Carbon Dioxide 25.7 Anion Gap 8 BUN 26 H Creatinine 1.40 H Estimated GFR 48 L POC Glucose Random Glucose 116 H Calcium 8.2 L Calcium Adj for Albumin Magnesium Total Bilirubin 0.4 AST 36 ALT 19 Alkaline Phosphatase 111 Total Creatine Kinase 120 CK-MB (CK-2) Less than 1.0 Troponin I Less than 0.02 L B-Natriuretic Peptide Total Protein 7.3 Albumin 3.3 L 02/11/18 02/11/18 02/11/18 02:56 02:56 08:37 WBC RBC Hgb Hct MCV MCH MCHC RDW Plt Count MPV Neut % (Auto) Lymph % (Auto) Richardson % (Auto) Eos % (Auto) Baso % (Auto) Neut # (Auto) Lymph # (Auto) Richardson # (Auto) Eos # (Auto) Baso # (Auto) WBC Differential Differential Comment PT INR APTT Sodium Cancelled Potassium Cancelled Chloride Cancelled Carbon Dioxide Cancelled Anion Gap Cancelled BUN Cancelled Creatinine Cancelled Estimated GFR Cancelled POC Glucose 122 H Random Glucose Cancelled Calcium Cancelled Calcium Adj for Albumin Cancelled Magnesium 2.4 Total Bilirubin Cancelled AST Cancelled ALT Cancelled Alkaline Phosphatase Cancelled Total Creatine Kinase CK-MB (CK-2) Troponin I B-Natriuretic Peptide 244 H Total Protein Cancelled Albumin Cancelled - Diagnostic results Imaging: Impressions Chest X-Ray 02/11/18 02:46 CONCLUSION: Central pulmonary vascular congestion. Femur X-Ray 02/11/18 02:46 CONCLUSION: Displaced mid femoral shaft fracture. At the level of the inferior margin of the surgical hardware. Pelvis X-Ray 02/11/18 02:46 CONCLUSION: No evidence of acute fracture. Tibia/Fibula X-Ray 02/11/18 02:46 CONCLUSION: No evidence of fracture of the lower leg. Hip x-ray: report reviewed, image reviewed Assessment and Plan - Assessment and Plan Pradeep is an 87-year-old male. 6 weeks ago he had surgery for left hip intertrochanteric fracture. He fell again resulting in midshaft femur fracture. Treatment options were discussed with patient and his son. At this point I would recommend surgery for possible open reduction internal fixation of fracture with plate and screws versus removal of intramedullary valeria with replacement of intramedullary valeria. The risk and benefits of surgery were discussed. All questions were answered. The risk and benefits of surgery were discussed in depth with patient. The risk of surgery include bleeding, infection, injuries to arteries, nerves, or blood vessels, infection, wound complications, nonunion, malunion, painful hardware, and need for further surgery. I also discussed medical complications including blood clots, pneumonia, stroke, heart attack, and . Informed consent was obtained and all questions were answered. N.p.o.--plan on surgery this morning if patient medically cleared Calcium and vitamin D supplementation Physical therapy consult Follow-up with Dr. Mcallister in 2 weeks He, Carlos Le A mid-level provider in my office (nurse practitioner or physician hospital clinic assistant) may see this patient on follow-up visits and continue to implement the objectives of this plan including: Starting or adjusting medications, injections , cast application, orthotics, brace application, physical therapy, radiological studies (including x-ray, MRI, CT, ultrasound, bone scan), vascular studies, neurologic studies, specialist consultation, and proceeding with surgical management, as appropriate.
--- NOTE | 2018-02-12 03:45 | MB ---
cc: Tyler Marquez DO DATE: 02/11/2018 REASON FOR CONSULTATION: Wide complex tachycardia. HISTORY OF PRESENT ILLNESS: Pradeep Peterson is a pleasant 87-year-old male who sees my partner, Dr. Mejia, in the office and presented after a fall leading to a femur fracture. The patient was previously here in early January with a fall and underwent a nailing of his left intertrochanteric femur fracture. He did well afterwards and went to rehab. Yesterday, he fell, landing on his left side, and had left hip pain. He is unable to stand or ambulate. X-rays on arrival showed a displaced left femur midshaft fracture. Apparently during his ambulance ride, there was a concern for episodes of wide complex tachycardia. I was asked to see him to help preoperatively for surgery. In seeing him, he is currently hemodynamically stable with no chest pain or shortness of breath. Review of his telemetry shows that he has had a couple of episodes of wide complex tachycardia at 3-5 beats. He has had a stress test, per Dr. Mejia's previous consultation within the last year, which was negative for ischemia, showing only an inferior infarct with an ejection fraction of 40%. PAST MEDICAL HISTORY: 1. Coronary artery disease. 2. Ischemic cardiomyopathy with an ejection fraction of 40%. 3. Prostate cancer. 4. History of falls. 5. Hyperlipidemia. PAST SURGICAL HISTORY: 1. Coronary artery bypass grafting (01/13/2014) with OCHOA to LAD, saphenous vein graft sequential to OM1 and OM3. Saphenous vein graft to PDA. 2. Inner trochanteric nailing for femur fracture (12/29/2017). 3. Hernia repair. ALLERGIES: PENICILLIN. MEDICATIONS: 1. Protonix 40 mg daily. 2. Aspirin 81 mg daily. 3. Oxybutynin 15 mg daily. 4. Crestor 10 mg daily. 5. Flonase 2 sprays daily. 6. Hydrocodone/acetaminophen 5/325 mg b.i.d. as needed. FAMILY HISTORY: Denies premature coronary artery disease or sudden cardiac within the family. SOCIAL HISTORY: The patient is a previous pipe smoker. Denies alcohol or drug abuse. REVIEW OF SYSTEMS: Fourteen systems were reviewed including osteopathic. Pertinent positives and negatives above, otherwise negative. PHYSICAL EXAMINATION: VITAL SIGNS: Temperature 98.7. Heart rate 62, blood pressure 133/60, respirations 20, pulse oximetry 96% on 2 liters. GENERAL: The patient appears well, in no acute distress. Alert, awake and oriented x3. HEENT: Extraocular muscles intact. Mucous membranes moist. NECK: Supple. No JVD at 45 degrees. No carotid bruits heard bilaterally. Carotid upstroke is brisk in nature. HEART: Regular rate and rhythm. Positive first and second heart sounds with no noted murmurs, gallops or rubs. LUNGS: Clear to auscultation bilaterally. No wheezes, rales or rhonchi. ABDOMEN: Soft, nontender, nondistended. No organomegaly noted. EXTREMITIES: No clubbing, cyanosis or edema. Left lower extremity is painful with any type of movement. NEUROLOGIC: No focal deficits. SKIN: Warm, dry and intact. OSTEOPATHIC: No kyphoscoliosis, lordosis or paraspinal tender points. LABORATORY DATA: Hemoglobin 12.3, hematocrit 36.2, platelets 143. Potassium 5.0, BUN 26, creatinine 1.4. Troponin less than 0.02. Electrocardiogram (02/11/2018 at 0909 hours): Sinus rhythm with sinus arrhythmia, PVCs, first degree AV block, nonspecific ST-T wave changes. IMPRESSION: 1. Preoperative cardiovascular exam. 2. Wide complex tachycardia. 3. Fall with displaced left femur midshaft fracture. 4. Previous fall with intramedullary nail fixation. 5. Coronary artery disease. 6. History of ischemic cardiomyopathy. RECOMMENDATIONS: 1. Mr. Peterson had a fall leading to a left femur fracture. 2. I was asked to see him to help preoperatively from a cardiovascular standpoint. Overall, his cardiovascular risk is elevated, but not to the point where he cannot have surgery. Ultimately, he needs surgery or his morbidity and mortality become extensively high. 3. He has had some wide complex tachycardia in short runs. He has had this previously before his last surgery and underwent surgery without complications. He has also had a nuclear stress test within the past year, which showed no ischemia. 4. Ultimately, at this time, he has no acute coronary syndrome, no acute congestive heart failure and he is hemodynamically and electrically stable. I believe that he may proceed with surgery as an elevated risk, although his risk is not prohibitive. 5. This was discussed with Mr. Peterson. Thank you for allowing me to see Pradeep Peterson. If there any questions, please do not hesitate to call. Tyler Marquez DO VGP/rw , 01:42 AM , 01:55 AM
[2018-02-12] MEDS ORDERED: Clindamycin Inj 600 MG/4 ML Vial ONE (09:00)
[2018-02-12] MEDS ORDERED: Lidocaine 2% Inj 50 ML Vial ONE (09:00)
[2018-02-12 09:16] LABS: Baso % (Auto) 0.2 % (0.0-2.0); Eos # (Auto) 0.2 th/mm3 (0.0-0.4); Eos % (Auto) 2.6 % (0.0-4.0); Hematocrit 35.7 % (39.0-51.0); Hemoglobin 11.9 gm/dL (13.0-17.0); Lymph % (Auto) 21.1 % (9.0-44.0); Mean Corpuscular HGB Conc 33.5 % (32.0-36.0); Mean Corpuscular Hemoglobin 32.1 pg (27.0-34.0); Mean Platelet Volume 8.6 fL (7.0-11.0); Mono % (Auto) 10.2 % (0.0-8.0); Neut # (Auto) 6.2 th/mm3 (1.8-7.7); Neut % (Auto) 65.9 % (16.0-70.0); Platelet Count 131 th/mm3 (150-450); Red Blood Count 3.72 mil/mm3 (4.50-5.90); Red Cell Distribution Width 13.9 % (11.6-17.2); White Blood Count 9.4 th/mm3 (4.0-11.0)
[2018-02-12 09:45] LABS: Calcium 8.6 mg/dL (8.5-10.1); Carbon Dioxide 23.8 meq/L (21.0-32.0); Potassium 4.3 meq/L (3.5-5.1)
[2018-02-12] MEDS ORDERED: Post-op Orders (for Pharmacy) OTHER STA (10:48)
[2018-02-12] MEDS: Senna/Docusate Sodium 8.6/50 MG Tablet PO SCH ×2 (10:48→20:31)
--- NOTE | 2018-02-12 10:58 | P.OP ---
- Preoperative Diagnosis (1) Closed left hip fracture (2) Fracture of femur Date of procedure: 02/12/18 Procedure: Removal of deep hardware left femur, intramedullary nail fixation left femur Anesthesia: GETA Surgeon: Dilan Mcallister MD City Weighmaster: REGINA Carreon PA-C The surgical procedure was assisted by my physician delivery driver assistant. My P.A. presence was necessary throughout this case for the manipulation and positioning of the surgical extremity. My P.A. was assisting me throughout the duration of this procedure. The skill set of a physician delivery driver assistant was medically necessary to complete this procedure. During the surgical case the surgical physician assistant was working at the back table and the physician delivery driver assistant was directly assisting me. Operation and Findings: implants used: Synthes 12 mm x 400 mm TFNA troch nail Plan of activity: 50% weightbearing left leg times 4 weeks, then weight-bear as tolerated Patient was seen and evaluated preoperatively. The patient has significant hip pain from femur fracture. He had a left hip intertrochanteric fracture treated with intramedullary nail fixation approximately 6 weeks ago. His new fracture is distal to the tip of the nail. The risk and benefits of surgery were discussed in depth with the patient to include bleeding, infection, nonunion, malunion, need for hip replacement, painful hardware, as well as medical competitions including blood clots, stroke, heart attack, and . Informed consent was obtained. Operative site was marked. Patient was brought to the operating room and placed on fracture table. IV sedation was administered by anesthesiologist. Timeout procedure was performed. Hip and leg were prepped with alcohol followed by DuraPrep and draped in the usual sterile fashion. IV antibiotics were given prior to incision. Procedure began with reduction of the fracture. The fracture was manipulated. The fracture did not reduce into appropriate alignment with closed reduction techniques. A 4 inch incision was made over the lateral aspect of the thigh centered over the fracture site. Iliotibial band was split in line with fibers. Vastus lateralis was elevated anteriorly. The fracture was visualized. At this point the fracture was again manipulated. The fracture reduced and keyed in excellent alignment. A fracture tenaculum was used to hold reduction. Next attention was turned to removal of hardware. 3 incisions were made through previous scars from prior surgery 6 weeks ago. The lofter was screwed into the helical blade. The set screw was now loosened proximally. The helical blade was now removed. The insertion handle was now screwed onto the nail. The distal interlocking screw was removed. The nail was now removed. Fluoroscopy was used to confirm reduction of the intertrochanteric fracture and the femoral shaft fracture. Guidepin was placed at the tip of the trochanter and advanced into the femoral canal through the previous nail tract. Fluoroscopy confirmed appropriate guidepin placement. A opening reamer was placed over the guidepin. A long ball tipped guide pin was now placed down the femoral canal into the center of the distal femur. The nail length was now measured. Fluoroscopy confirmed appropriate guidepin placement. Flexible reamers were now passed over the guidepin to ream the intramedullary canal. The nail was attached to the insertion handle. Nail was now placed over the guidepin into the femoral canal. Fluoroscopy confirmed appropriate nail placement. A second incision was made over the lateral thigh. Cannulas were placed through the insertion handle down to the femur. Guidepin was now placed through the femoral nail into the center of the femoral head. Fluoroscopy confirmed appropriate guidepin placement. Screw length was measured. Cannulated drill was placed over the guidepin. Appropriate length lag screw was now placed. Traction was released and compression was applied. The set screw was now tightened in dynamic mode. The femoral shaft fracture was visualized. The fracture was keyed in anatomic alignment. A cerclage cable was now placed around the fracture site. Care was taken to avoid injury to neurovascular structures. The cable was tensioned appropriately. Cable was now clamped and cut. Next, using perfect naknek technique two distal interlocking screws were placed. Screw holes were predrilled and screw lengths were measured. Final fluoroscopy revealed well aligned fracture with well-placed hardware. Incision was closed with #1 Vicryl, 3-0 Vicryl, and cristal. Sterile dressings were applied. Patient was awakened and transferred to recovery room.
[2018-02-12] MEDS ORDERED: fentaNYL Citrate Inj 100 MCG/2 ML Ampul ONE (11:24)
[2018-02-12 11:49] LABS: Hematocrit 34.8 % (39.0-51.0); Hemoglobin 11.6 gm/dL (13.0-17.0)
--- NOTE | 2018-02-12 12:37 | XR ---
EXAM DATE: 02/12/2018 12:32 PM EST AGE/SEX: 87 years / Male INDICATIONS: ORIF left femur fracture with removal of hardware. CLINICAL DATA: This is the patient's subsequent encounter. Patient reports that signs and symptoms h ave been present for 2 days and indicates a pain score of Nonresponsive. MEDICAL/SURGICAL HISTORY: Non-responsive. Non-responsive. [place] [facility] [place]. . FINDINGS: Multiple coned down views of the left femur were obtained intraoperatively using the matrix camera de karinatrate removal of the short intramedullary valeria and placement of a longer intramedullary valeria transf ixing the mid femoral fracture. The fracture fragments are now in near-anatomic alignment. A locking cannulated screw extends into the femoral head. CONCLUSION: Status post open reduction internal fixation. Electronically signed by: Bola Faustin MD 02/12/2018 12:35 PM EST
[2018-02-12] MEDS: Calcium/Vitamin D 250/125 MG Tablet PO SCH ×2 (12:59→17:22)
[2018-02-12] MEDS: Morphine Sulfate Inj 2 MG/ML Vial IV.PUSH PRN ×2 (14:00→18:29)
--- NOTE | 2018-02-12 23:10 | P.PNCA ---
Subjective Interval history: S/p left hip surgery Doing well, no complaints Telemetry sinus rhythm, no wide complex tachycardia noted Medications and Allergies Active Medications: Active Medications Acetaminophen (Tylenol) 650 mg PO Q4H PRN PRN Reason: Temp > 100.4 Hydrocodone Bitart/Acetaminophen ([place] 5/325) 1 tab PO Q4H PRN PRN Reason: pain 3-6 Last Admin: 02/11/18 16:21 Dose: 1 tab Hydrocodone Bitart/Acetaminophen ([place] 7.5/325) 1 tab PO Q4H PRN PRN Reason: pain 7-10 Last Admin: 02/12/18 18:23 Dose: 1 tab Al Hydroxide/Mg Hydroxide (Milk Of Magnesia Liq) 30 ml PO Q12H PRN PRN Reason: Mild Constipation Bisacodyl (Dulcolax Supp) 10 mg RECTAL DAILY PRN PRN Reason: SEVERE CONSITIPATION Calcium/Vitamin D (Oscal With D 250/125 Mg) 1 tab PO TID [facility] Last Admin: 02/12/18 17:22 Dose: 1 tab Enoxaparin Sodium (Lovenox Inj) 40 mg SQ Q24H [facility] Cefazolin Sodium 1,000 mg/ (Sodium Chloride) 100 mls @ 200 mls/hr IV.SIG Q8H [facility] Stop: 02/13/18 03:29 Lactulose (Lactulose Liq) 30 ml PO DAILY PRN PRN Reason: SEVERE CONSITIPATION Miscellaneous Information (Misc Nursing Information) 0 each OTHER UNSCH PRN PRN Reason: SEE LABEL COMMENTS Stop: 02/13/18 11:19 Morphine Sulfate (Morphine Inj) 2 mg IV.PUSH Q4H PRN PRN Reason: PAIN 3-10 Last Admin: 02/11/18 17:30 Dose: 2 mg Morphine Sulfate (Morphine Inj) 2 mg IV.PUSH Q2H PRN PRN Reason: BREAKTHROUGH PAIN Last Admin: 02/12/18 14:00 Dose: 2 mg Ondansetron HCl (Zofran Odt) 4 mg PO Q6H PRN PRN Reason: NAUSEA OR VOMITING Senna/Docusate Sodium (Yolis-Colace) 1 tab PO BID [facility] Last Admin: 02/12/18 20:31 Dose: Not Given Sennosides (Senokot) 17.2 mg PO Q12H PRN PRN Reason: Moderate Constipation Sodium Chloride (Ns Flush) 2 ml IV.FLUSH BID [facility] Last Admin: 02/12/18 20:31 Dose: 2 ml Sodium Chloride (Ns Flush) 2 ml IV.FLUSH PRN PRN PRN Reason: FLUSH AFTER USING IV ACCESS Vitamin D (Vitamin D3) 5,000 unit PO DAILY [facility] Allergies Allergy/AdvReac Type Severity Reaction Status Date / Time penicillin G Allergy Severe HIVES Verified 02/11/18 02:42 Physical Exam Vital signs: Vital Signs 02/12/18 00:00 02/12/18 00:01 02/12/18 01:00 Temperature 98.7 F Pulse Rate 60 61 70 Respiratory Rate 14 20 19 Blood Pressure 151/66 H 153/64 H Pulse Oximetry 97 96 95 02/12/18 01:01 02/12/18 02:00 02/12/18 02:01 Temperature Pulse Rate 67 56 L 60 Respiratory Rate 21 30 H 21 Blood Pressure 151/66 H 129/59 L Pulse Oximetry 95 95 95 02/12/18 03:00 02/12/18 03:01 02/12/18 04:00 Temperature 98.7 F Pulse Rate 71 66 61 Respiratory Rate 19 19 17 Blood Pressure 103/53 L 157/65 H Pulse Oximetry 95 96 96 02/12/18 04:01 02/12/18 05:00 02/12/18 05:01 Temperature Pulse Rate 61 77 79 Respiratory Rate 14 16 16 Blood Pressure 157/65 H 132/61 Pulse Oximetry 96 96 96 02/12/18 06:00 02/12/18 06:01 02/12/18 08:00 Temperature 98.8 F 98.5 F Pulse Rate 74 75 68 Respiratory Rate 9 L 11 L 16 Blood Pressure 137/74 137/74 145/63 H Pulse Oximetry 98 98 97 02/12/18 11:17 02/12/18 11:30 02/12/18 11:45 Temperature 98.4 F 98.2 F Pulse Rate 101 H 97 H 95 H Respiratory Rate 20 18 18 Blood Pressure 133/73 167/73 H 154/67 H Pulse Oximetry 95 98 95 02/12/18 12:00 02/12/18 13:00 02/12/18 13:36 Temperature 98.4 F Pulse Rate 73 71 75 Respiratory Rate 16 Blood Pressure 130/72 Pulse Oximetry 92 L 02/12/18 14:06 12/12/18 15:00 02/12/18 16:00 Temperature 98.4 F Pulse Rate 72 73 Respiratory Rate 16 18 Blood Pressure 128/58 L Pulse Oximetry 98 02/12/18 17:00 02/12/18 18:00 02/12/18 18:49 Temperature Pulse Rate 70 72 Respiratory Rate 20 Blood Pressure Pulse Oximetry 02/12/18 20:00 Temperature 97.1 F L Pulse Rate 72 Respiratory Rate 18 Blood Pressure 128/63 Pulse Oximetry 98 Intake & Output 02/12/18 02/12/18 02/13/18 06:59 18:59 06:59 Intake Total 240 / 240 750 / 750 Output Total 1000 / 1000 250 / 250 Balance -760 / -760 500 / 500 Weight 82.5 kg Intake: Oral 240 / 240 Anesthesia Amount 750 / 750 Output: Urine 1000 / 1000 Estimated Blood Loss 250 / 250 Other: Date of Last Bowel Movement 02/10/18 # Bowel Movements 0 Weight On Admission 81.6 kg Narrative: GENERAL: NAD SKIN: Warm and dry. HEAD: Atraumatic. Normocephalic. EYES: Pupils equal and round. No scleral icterus. No injection or drainage. ENT: No nasal bleeding or discharge. Mucous membranes pink and moist. NECK: Trachea midline. No JVD. CARDIOVASCULAR: Regular rate and rhythm. RESPIRATORY: No accessory muscle use. Clear to auscultation. Breath sounds equal bilaterally. GASTROINTESTINAL: Abdomen soft, non-tender, nondistended. Hepatic and splenic margins not palpable. MUSCULOSKELETAL: Extremities without clubbing, cyanosis, or edema. Left hip with bandage, clean/dry NEUROLOGICAL: Awake and alert. No obvious cranial nerve deficits. Motor grossly within normal limits. Five out of 5 muscle strength in the arms and legs. Normal speech. PSYCHIATRIC: Appropriate mood and affect; insight and judgment normal. Results 02/12/18 11:33 02/12/18 08:55 Cardiac Enzymes 02/11/18 02/11/18 02/11/18 Range/Units 02:56 02:56 02:56 AST 36 Cancelled (15-37) U/L CK-MB (CK-2) Less than 1.0 (0.5-3.6) ng/mL Troponin I Less than 0.02 L (0.02-0.05) ng/mL B-Natriuretic Peptide 244 H (0-100) pg/mL Coagulation 02/11/18 02/11/18 Range/Units 02:56 02:56 PT 9.6 L (9.8-11.6) sec APTT 25.8 (23.4-31.7) sec B-Natriuretic Peptide 244 H (0-100) pg/mL CBC 02/11/18 02/12/18 02/12/18 Range/Units 02:56 08:55 11:33 WBC 11.3 H 9.4 (4.0-11.0) th/mm3 RBC 3.85 L 3.72 L (4.50-5.90) mil/mm3 Hgb 12.3 L 11.9 L 11.6 L (13.0-17.0) gm/dL Hct 36.2 L 35.7 L 34.8 L (39.0-51.0) % Plt Count 143 L 131 L (150-450) th/mm3 Neut # (Auto) 6.4 6.2 (1.8-7.7) th/mm3 Lymph # (Auto) 3.5 2.0 (1.0-4.8) th/mm3 [place] # (Auto) 0.9 1.0 H (0.0-0.9) th/mm3 Eos # (Auto) 0.4 0.2 (0.0-0.4) th/mm3 Baso # (Auto) 0.1 0.0 (0.0-0.2) th/mm3 Comprehensive Metabolic Panel 02/11/18 02/11/18 02/12/18 Range/Units 02:56 02:56 08:55 Sodium 142 Cancelled 140 (136-145) meq/L Potassium 5.0 Cancelled 4.3 (3.5-5.1) meq/L Chloride 108 H Cancelled 107 (98-107) meq/L Carbon Dioxide 25.7 Cancelled 23.8 (21.0-32.0) meq/L BUN 26 H Cancelled 20 H (7-18) mg/dL Creatinine 1.40 H Cancelled 1.14 (0.60-1.30) mg/dL Calcium 8.2 L Cancelled 8.6 (8.5-10.1) mg/dL AST 36 Cancelled (15-37) U/L ALT 19 Cancelled (12-78) U/L Alkaline Phosphatase 111 Cancelled (45-117) U/L Total Protein 7.3 Cancelled (6.4-8.2) g/dL Albumin 3.3 L Cancelled (3.4-5.0) g/dL Intake and Output 02/12/18 02/12/18 02/13/18 14:59 22:59 06:59 Intake Total 750 / 750 Output Total 250 / 250 Balance 500 / 500 Intake: Anesthesia Amount 750 / 750 Output: Estimated Blood Loss 250 / 250 Other: Date of Last Bowel Movement 02/10/18 - Imaging and Cardiology Imaging: Impressions Chest X-Ray 02/11/18 02:46 CONCLUSION: Central pulmonary vascular congestion. Femur X-Ray 02/11/18 02:46 CONCLUSION: Displaced mid femoral shaft fracture. At the level of the inferior margin of the surgical hardware. Pelvis X-Ray 02/11/18 02:46 CONCLUSION: No evidence of acute fracture. Tibia/Fibula X-Ray 02/11/18 02:46 CONCLUSION: No evidence of fracture of the lower leg. Femur X-Ray 02/12/18 00:00 CONCLUSION: Status post open reduction internal fixation. Assessment and Plan - Assessment (1) Closed left hip fracture Code(s): S72.002A - Fracture of unspecified part of neck of left femur, initial encounter for closed fracture Status: Acute (2) CAD (coronary atherosclerotic disease) Code(s): I25.10 - Atherosclerotic heart disease of [place] coronary artery without angina pectoris Status: Chronic (3) Intertrochanteric fracture of left femur Code(s): S72.142A - Displaced intertrochanteric fracture of left femur, initial encounter for closed fracture Status: Acute Onset Date: ~12/28/17 (4) Asymptomatic PVCs Code(s): I49.3 - Ventricular premature depolarization Status: Acute - Plan 1) Multiple falls 2) Left hip fracture Previous intramedullary nail, now with repeat hip surgery 3) PVC/Wide complex tachycardia Previous nuclear within the past year negative EF 35-40% on previous echo, similar to previous before that No further episodes on telemetry (2) CAD (coronary atherosclerotic disease) Qualifiers: (3) Intertrochanteric fracture of left femur Qualifiers: Encounter type: subsequent encounter Fracture type: closed Fracture alignment: displaced
[2018-02-13 06:35] LABS: Hematocrit 27.7 % (39.0-51.0); Hemoglobin 9.6 gm/dL (13.0-17.0)
--- NOTE | 2018-02-13 07:36 | P.PNOP ---
Subjective Interval history: POD 1 s/p revision IMN with ORIF left femur fx doing well. states pain controlled. has not been out of bed yet Physical Exam Vital signs: Vital Signs 02/12/18 08:00 02/12/18 11:17 02/12/18 11:30 Temperature 98.5 F 98.4 F Pulse Rate 68 101 H 97 H Respiratory Rate 16 20 18 Blood Pressure 145/63 H 133/73 167/73 H Pulse Oximetry 97 95 98 02/12/18 11:45 02/12/18 12:00 02/12/18 13:00 Temperature 98.2 F 98.4 F Pulse Rate 95 H 73 71 Respiratory Rate 18 16 Blood Pressure 154/67 H 130/72 Pulse Oximetry 95 92 L 02/12/18 13:36 02/12/18 14:06 02/12/18 15:00 Temperature Pulse Rate 75 72 Respiratory Rate 16 Blood Pressure Pulse Oximetry 02/12/18 16:00 02/12/18 17:00 02/12/18 18:00 Temperature 98.4 F Pulse Rate 73 70 72 Respiratory Rate 18 Blood Pressure 128/58 L Pulse Oximetry 98 02/12/18 18:49 02/12/18 20:00 02/12/18 21:00 Temperature 97.1 F L Pulse Rate 72 72 Respiratory Rate 20 18 Blood Pressure 128/63 Pulse Oximetry 98 02/12/18 22:00 02/12/18 23:00 02/13/18 00:00 Temperature 97 F L Pulse Rate 70 74 85 Respiratory Rate 18 Blood Pressure 136/74 Pulse Oximetry 98 02/13/18 01:00 02/13/18 02:00 02/13/18 03:00 Temperature Pulse Rate 72 68 60 Respiratory Rate Blood Pressure Pulse Oximetry 02/13/18 04:00 02/13/18 05:00 02/13/18 06:00 Temperature 97.4 F L Pulse Rate 63 80 66 Respiratory Rate 18 Blood Pressure 141/68 H Pulse Oximetry 97 Intake & Output 02/12/18 02/13/18 02/13/18 18:59 06:59 18:59 Intake Total 750 / 750 Output Total 250 / 250 Balance 500 / 500 Weight 82.6 kg Intake: Anesthesia Amount 750 / 750 Output: Estimated Blood Loss 250 / 250 Other: Date of Last Bowel Movement 02/10/18 Narrative: LLE: moderate drainage from central bandage. remaining dressings clean and dry. intact. NVI Results - Labs CBC & Chem 7: 02/13/18 05:04 02/12/18 08:55 Laboratory Results - last 24 hr 02/12/18 02/12/18 02/12/18 08:55 08:55 11:33 WBC 9.4 RBC 3.72 L Hgb 11.9 L 11.6 L Hct 35.7 L 34.8 L MCV 96.0 MCH 32.1 MCHC 33.5 RDW 13.9 Plt Count 131 L MPV 8.6 Neut % (Auto) 65.9 Lymph % (Auto) 21.1 [place] % (Auto) 10.2 H Eos % (Auto) 2.6 Baso % (Auto) 0.2 Neut # (Auto) 6.2 Lymph # (Auto) 2.0 [place] # (Auto) 1.0 H Eos # (Auto) 0.2 Baso # (Auto) 0.0 WBC Differential . Differential Comment Auto diff final Sodium 140 Potassium 4.3 Chloride 107 Carbon Dioxide 23.8 Anion Gap 9 BUN 20 H Creatinine 1.14 Estimated GFR 61 L Random Glucose 101 Calcium 8.6 02/13/18 05:04 WBC RBC Hgb 9.6 L D Hct 27.7 L MCV MCH MCHC RDW Plt Count MPV Neut % (Auto) Lymph % (Auto) [place] % (Auto) Eos % (Auto) Baso % (Auto) Neut # (Auto) Lymph # (Auto) [place] # (Auto) Eos # (Auto) Baso # (Auto) WBC Differential Differential Comment Sodium Potassium Chloride Carbon Dioxide Anion Gap BUN Creatinine Estimated GFR Random Glucose Calcium - Imaging Impressions Femur X-Ray 02/12/18 00:00 CONCLUSION: Status post open reduction internal fixation. Assessment and Plan - Assessment and Plan 1) Left Periprosthetic Femoral Shaft Fx s/p revision IMN with ORIF - POD 1 -50%WB -begin daily dressing changes today with xeroform/4x4/tape. ok to transition to xeroform/[place] if minimal drainage -DVT prophylaxis -CM for DC planning. will likely require SNF -f/u with [facility] or [facility] in 2 weeks [facility] Prescription Drug Monitoring Database has been queried and verified prior to prescribing the controlled substance. Acute pain exception. This patient has normal, predicted, physiological, and time limited response to an adverse mechanical stimulus associated with surgery, trauma, or acute illness as described in my notes. There is a lack of alternative treatment options other than to include the prescribed narcotic treatment for this condition.
[2018-02-13] MEDS: Calcium/Vitamin D 250/125 MG Tablet PO SCH ×3 (08:02→18:08)
[2018-02-13] MEDS: Morphine Sulfate Inj 2 MG/ML Vial IV.PUSH PRN ×4 (08:02→18:08)
[2018-02-13] MEDS: Senna/Docusate Sodium 8.6/50 MG Tablet PO SCH ×2 (08:03→21:22)
--- NOTE | 2018-02-13 08:03 | P.PNFP ---
Subjective Interval history: PO day 1 , complains of left hip pain Denies Cp, palpations, No sob Dsg intact Results - Labs Result diagrams: 02/13/18 05:04 02/12/18 08:55 Abnormal lab results 02/12/18 02/12/18 02/12/18 Range/Units 08:55 08:55 11:33 RBC 3.72 L (4.50-5.90) mil/mm3 Hgb 11.9 L 11.6 L (13.0-17.0) gm/dL Hct 35.7 L 34.8 L (39.0-51.0) % Plt Count 131 L (150-450) th/mm3 [place] % (Auto) 10.2 H (0.0-8.0) % [place] # (Auto) 1.0 H (0.0-0.9) th/mm3 BUN 20 H (7-18) mg/dL Estimated GFR 61 L (>89) mL/min 02/13/18 Range/Units 05:04 RBC (4.50-5.90) mil/mm3 Hgb 9.6 L D (13.0-17.0) gm/dL Hct 27.7 L (39.0-51.0) % Plt Count (150-450) th/mm3 [place] % (Auto) (0.0-8.0) % [place] # (Auto) (0.0-0.9) th/mm3 BUN (7-18) mg/dL Estimated GFR (>89) mL/min Short CBC 02/12/18 02/12/18 02/13/18 Range/Units 08:55 11:33 05:04 WBC 9.4 (4.0-11.0) th/mm3 Hgb 11.9 L 11.6 L 9.6 L D (13.0-17.0) gm/dL Hct 35.7 L 34.8 L 27.7 L (39.0-51.0) % Plt Count 131 L (150-450) th/mm3 BMP 02/12/18 08:55 Sodium 140 Potassium 4.3 Chloride 107 Carbon Dioxide 23.8 BUN 20 H Creatinine 1.14 Calcium 8.6 - Imaging Impressions Femur X-Ray 02/12/18 00:00 CONCLUSION: Status post open reduction internal fixation. Physical Exam Vital signs: Vital Signs 02/12/18 08:00 02/12/18 11:17 02/12/18 11:30 Temperature 98.5 F 98.4 F Pulse Rate 68 101 H 97 H Respiratory Rate 16 20 18 Blood Pressure 145/63 H 133/73 167/73 H Pulse Oximetry 97 95 98 02/12/18 11:45 02/12/18 12:00 02/12/18 13:00 Temperature 98.2 F 98.4 F Pulse Rate 95 H 73 71 Respiratory Rate 18 16 Blood Pressure 154/67 H 130/72 Pulse Oximetry 95 92 L 02/12/18 13:36 02/12/18 14:06 02/12/18 15:00 Temperature Pulse Rate 75 72 Respiratory Rate 16 Blood Pressure Pulse Oximetry 02/12/18 16:00 02/12/18 17:00 02/12/18 18:00 Temperature 98.4 F Pulse Rate 73 70 72 Respiratory Rate 18 Blood Pressure 128/58 L Pulse Oximetry 98 02/12/18 18:49 02/12/18 20:00 02/12/18 21:00 Temperature 97.1 F L Pulse Rate 72 72 Respiratory Rate 20 18 Blood Pressure 128/63 Pulse Oximetry 98 02/12/18 22:00 02/12/18 23:00 02/13/18 00:00 Temperature 97 F L Pulse Rate 70 74 85 Respiratory Rate 18 Blood Pressure 136/74 Pulse Oximetry 98 02/13/18 01:00 02/13/18 02:00 02/13/18 03:00 Temperature Pulse Rate 72 68 60 Respiratory Rate Blood Pressure Pulse Oximetry 02/13/18 04:00 02/13/18 05:00 02/13/18 06:00 Temperature 97.4 F L Pulse Rate 63 80 66 Respiratory Rate 18 Blood Pressure 141/68 H Pulse Oximetry 97 02/13/18 07:00 Temperature Pulse Rate 92 H Respiratory Rate Blood Pressure Pulse Oximetry Intake & Output 02/12/18 02/13/18 02/13/18 18:59 06:59 18:59 Intake Total 750 / 750 Output Total 250 / 250 Balance 500 / 500 Weight 82.6 kg Intake: Anesthesia Amount 750 / 750 Output: Estimated Blood Loss 250 / 250 Other: Date of Last Bowel Movement 02/10/18 - Constitutional no acute distress - Routine HEENT Exam Eye: Present: PERRL ENT: Present: mucous membranes moist - Routine Neck Exam Present: supple - Routine Respiratory Exam Present: CTA bilaterally - Routine Cardiovascular Exam Present: S1, S2 - Routine Abdominal Exam Present: soft, normoactive bowel sounds - Routine Extremities Exam Present: pulses intact - Routine Skin Exam Present: dry, warm Comments: Dressing to left hip intact, with some noted drainage - Routine Neurological Exam Present: alert - Routine Psychiatric Exam Present: cooperative Assessment and Plan - Assessment (1) Fracture of femur Code(s): S72.90XA - Unspecified fracture of unspecified femur, initial encounter for closed fracture Status: Acute Plan: S/P fall Left femur fracture S/P revision IMN w/ orif of left femur pain management (2) V tach Code(s): I47.2 - Ventricular tachycardia Status: Acute Plan: Cardiology following, cont cardiac med's currently SR (3) CAD (coronary atherosclerotic disease) Code(s): I25.10 - Atherosclerotic heart disease of [place] coronary artery without angina pectoris Status: Chronic Plan: Cont home medications. - Assessment and Plan 02/13/18- Seen this am, PO day 1 S/P revision of left femur. VSS hgb stable in Sr. Denies Cp, SOB, has some pain to hip, nurse informed. Would like referral back to [facility] for rehab when Cleared. (1) Fracture of femur Qualifiers: Encounter type: initial encounter Femur location: shaft Fracture type: closed Fracture morphology: unspecified fracture morphology Laterality: left Qualified Code(s): S72.302A - Unspecified fracture of shaft of left femur, initial encounter for closed fracture (3) CAD (coronary atherosclerotic disease) Qualifiers:
[2018-02-13] MEDS ORDERED: Enoxaparin Inj 30 MG/0.3 ML Syringe SQ SCH (10:20)
--- NOTE | 2018-02-13 14:17 | P.PNCA ---
Subjective Interval history: No events overnight 50% weight bearing Telemetry with rare PVC, couplet Medications and Allergies Active Medications: Active Medications Acetaminophen (Tylenol) 650 mg PO Q4H PRN PRN Reason: Temp > 100.4 Hydrocodone Bitart/Acetaminophen ([place] 5/325) 1 tab PO Q4H PRN PRN Reason: pain 3-6 Last Admin: 02/13/18 02:29 Dose: 1 tab Hydrocodone Bitart/Acetaminophen ([place] 7.5/325) 1 tab PO Q4H PRN PRN Reason: pain 7-10 Last Admin: 02/13/18 12:07 Dose: 1 tab Al Hydroxide/Mg Hydroxide (Milk Of Magnesia Liq) 30 ml PO Q12H PRN PRN Reason: Mild Constipation Bisacodyl (Dulcolax Supp) 10 mg RECTAL DAILY PRN PRN Reason: SEVERE CONSITIPATION Calcium/Vitamin D (Oscal With D 250/125 Mg) 1 tab PO TID [facility] Last Admin: 02/13/18 12:07 Dose: 1 tab Enoxaparin Sodium (Lovenox Inj) 40 mg SQ Q24H [facility] Cefazolin Sodium 1,000 mg/ (Sodium Chloride) 100 mls @ 200 mls/hr IV.SIG Q8H [facility] Stop: 02/13/18 03:29 Lactulose (Lactulose Liq) 30 ml PO DAILY PRN PRN Reason: SEVERE CONSITIPATION Morphine Sulfate (Morphine Inj) 2 mg IV.PUSH Q4H PRN PRN Reason: PAIN 3-10 Last Admin: 02/11/18 17:30 Dose: 2 mg Morphine Sulfate (Morphine Inj) 2 mg IV.PUSH Q2H PRN PRN Reason: BREAKTHROUGH PAIN Last Admin: 02/13/18 10:32 Dose: 2 mg Ondansetron HCl (Zofran Odt) 4 mg PO Q6H PRN PRN Reason: NAUSEA OR VOMITING Senna/Docusate Sodium (Yolis-Colace) 1 tab PO BID [facility] Last Admin: 02/13/18 08:03 Dose: Not Given Sennosides (Senokot) 17.2 mg PO Q12H PRN PRN Reason: Moderate Constipation Sodium Chloride (Ns Flush) 2 ml IV.FLUSH BID [facility] Last Admin: 02/13/18 08:02 Dose: 2 ml Sodium Chloride (Ns Flush) 2 ml IV.FLUSH PRN PRN PRN Reason: FLUSH AFTER USING IV ACCESS Vitamin D (Vitamin D3) 5,000 unit PO DAILY [facility] Last Admin: 02/13/18 08:02 Dose: 5,000 unit Allergies Allergy/AdvReac Type Severity Reaction Status Date / Time penicillin G Allergy Severe HIVES Verified 02/11/18 02:42 Physical Exam Vital signs: Vital Signs 02/12/18 15:00 02/12/18 16:00 02/12/18 17:00 Temperature 98.4 F Pulse Rate 72 73 70 Respiratory Rate 18 Blood Pressure 128/58 L Pulse Oximetry 98 02/12/18 18:00 02/12/18 18:49 02/12/18 20:00 Temperature 97.1 F L Pulse Rate 72 72 Respiratory Rate 20 18 Blood Pressure 128/63 Pulse Oximetry 98 02/12/18 21:00 02/12/18 22:00 02/12/18 23:00 Temperature Pulse Rate 72 70 74 Respiratory Rate Blood Pressure Pulse Oximetry 02/13/18 00:00 02/13/18 01:00 02/13/18 02:00 Temperature 97 F L Pulse Rate 85 72 68 Respiratory Rate 18 Blood Pressure 136/74 Pulse Oximetry 98 02/13/18 03:00 02/13/18 04:00 02/13/18 05:00 Temperature 97.4 F L Pulse Rate 60 63 80 Respiratory Rate 18 Blood Pressure 141/68 H Pulse Oximetry 97 02/13/18 06:00 02/13/18 07:00 02/13/18 08:00 Temperature 98.0 F Pulse Rate 66 92 H 74 Respiratory Rate 16 Blood Pressure 128/65 Pulse Oximetry 97 02/13/18 08:17 02/13/18 09:00 02/13/18 09:36 Temperature Pulse Rate 72 78 Respiratory Rate 19 Blood Pressure Pulse Oximetry 02/13/18 10:40 02/13/18 10:54 02/13/18 12:00 Temperature 98.1 F Pulse Rate 86 78 Respiratory Rate 16 16 Blood Pressure 148/76 H Pulse Oximetry 98 02/13/18 12:57 02/13/18 14:00 02/13/18 14:08 Temperature Pulse Rate 72 78 72 Respiratory Rate Blood Pressure Pulse Oximetry Intake & Output 02/12/18 02/13/18 02/13/18 18:59 06:59 18:59 Intake Total 750 / 750 Output Total 250 / 250 Balance 500 / 500 Weight 82.6 kg Intake: Anesthesia Amount 750 / 750 Output: Estimated Blood Loss 250 / 250 Other: Date of Last Bowel Movement 02/10/18 02/10/18 Narrative: GENERAL: NAD SKIN: Warm and dry. HEAD: Atraumatic. Normocephalic. EYES: Pupils equal and round. No scleral icterus. No injection or drainage. ENT: No nasal bleeding or discharge. Mucous membranes pink and moist. NECK: Trachea midline. No JVD. CARDIOVASCULAR: Regular rate and rhythm. RESPIRATORY: No accessory muscle use. Clear to auscultation. Breath sounds equal bilaterally. GASTROINTESTINAL: Abdomen soft, non-tender, nondistended. Hepatic and splenic margins not palpable. MUSCULOSKELETAL: Extremities without clubbing, cyanosis, or edema. Hip with dressing NEUROLOGICAL: Awake and alert. No obvious cranial nerve deficits. Motor grossly within normal limits. Five out of 5 muscle strength in the arms and legs. Normal speech. PSYCHIATRIC: Appropriate mood and affect; insight and judgment normal. Results 02/13/18 05:04 02/12/18 08:55 CBC 02/12/18 02/12/18 02/13/18 Range/Units 08:55 11:33 05:04 WBC 9.4 (4.0-11.0) th/mm3 RBC 3.72 L (4.50-5.90) mil/mm3 Hgb 11.9 L 11.6 L 9.6 L D (13.0-17.0) gm/dL Hct 35.7 L 34.8 L 27.7 L (39.0-51.0) % Plt Count 131 L (150-450) th/mm3 Neut # (Auto) 6.2 (1.8-7.7) th/mm3 Lymph # (Auto) 2.0 (1.0-4.8) th/mm3 [place] # (Auto) 1.0 H (0.0-0.9) th/mm3 Eos # (Auto) 0.2 (0.0-0.4) th/mm3 Baso # (Auto) 0.0 (0.0-0.2) th/mm3 Comprehensive Metabolic Panel 02/12/18 Range/Units 08:55 Sodium 140 (136-145) meq/L Potassium 4.3 (3.5-5.1) meq/L Chloride 107 (98-107) meq/L Carbon Dioxide 23.8 (21.0-32.0) meq/L BUN 20 H (7-18) mg/dL Creatinine 1.14 (0.60-1.30) mg/dL Calcium 8.6 (8.5-10.1) mg/dL Intake and Output 02/12/18 02/13/18 02/13/18 22:59 06:59 14:59 Other: Date of Last Bowel Movement 02/10/18 02/10/18 02/10/18 Weight 82.6 kg - Imaging and Cardiology Imaging: Impressions Femur X-Ray 02/12/18 00:00 CONCLUSION: Status post open reduction internal fixation. Assessment and Plan - Assessment (1) Closed left hip fracture Code(s): S72.002A - Fracture of unspecified part of neck of left femur, initial encounter for closed fracture Status: Acute (2) CAD (coronary atherosclerotic disease) Code(s): I25.10 - Atherosclerotic heart disease of [place] coronary artery without angina pectoris Status: Chronic (3) Intertrochanteric fracture of left femur Code(s): S72.142A - Displaced intertrochanteric fracture of left femur, initial encounter for closed fracture Status: Acute Onset Date: ~12/28/17 (4) Asymptomatic PVCs Code(s): I49.3 - Ventricular premature depolarization Status: Acute - Plan 1) Multiple falls 2) Left hip fracture Previous intramedullary nail, now with repeat hip surgery 3) PVC/Wide complex tachycardia Previous nuclear within the past year negative EF 35-40% on previous echo, similar to previous before that No further episodes on telemetry 4) Can move to orthopedic floor or rehab from cardiovascular standpoint No further work up (2) CAD (coronary atherosclerotic disease) Qualifiers: (3) Intertrochanteric fracture of left femur Qualifiers: Encounter type: subsequent encounter Fracture type: closed Fracture alignment: displaced
[2018-02-13] MEDS ORDERED: Enoxaparin Inj 40 MG/0.4 ML Syringe SQ SCH (15:30)
--- NOTE | 2018-02-14 06:35 | P.PNOP ---
Subjective Interval history: POD 2 s/p revision IMN left femur doing well. improving. pain controlled. Physical Exam Vital signs: Vital Signs 02/13/18 07:00 02/13/18 08:00 02/13/18 08:17 Temperature 98.0 F Pulse Rate 92 H 74 Respiratory Rate 16 19 Blood Pressure 128/65 Pulse Oximetry 97 02/13/18 09:00 02/13/18 09:36 02/13/18 10:40 Temperature Pulse Rate 72 78 Respiratory Rate 16 Blood Pressure Pulse Oximetry 02/13/18 10:54 02/13/18 12:00 02/13/18 12:57 Temperature 98.1 F Pulse Rate 86 78 72 Respiratory Rate 16 Blood Pressure 148/76 H Pulse Oximetry 98 02/13/18 14:00 02/13/18 14:08 02/13/18 15:12 Temperature 98.4 F Pulse Rate 78 72 63 Respiratory Rate 16 Blood Pressure 145/53 H Pulse Oximetry 98 02/13/18 15:36 02/13/18 16:54 02/13/18 18:11 Temperature 97.6 F Pulse Rate 76 92 H 75 Respiratory Rate 16 16 Blood Pressure 127/57 L Pulse Oximetry 96 02/13/18 18:26 02/13/18 20:00 02/13/18 21:46 Temperature 97.5 F L Pulse Rate 75 Respiratory Rate 18 16 16 Blood Pressure 155/60 H Pulse Oximetry 98 02/14/18 00:35 02/14/18 05:12 Temperature 97.4 F L 97.4 F L Pulse Rate 85 52 L Respiratory Rate 17 16 Blood Pressure 126/76 125/65 Pulse Oximetry 94 L 94 L Intake & Output 02/13/18 02/13/18 02/14/18 06:59 18:59 06:59 Weight 82.6 kg 82.6 kg Other: Date of Last Bowel Movement 02/10/18 02/10/18 02/12/18 Narrative: LLE: dressings clean and dry. intact. NVI Results - Labs CBC & Chem 7: 02/13/18 05:04 02/12/18 08:55 Laboratory Results - last 24 hr 02/13/18 05:04 Hgb 9.6 L D Hct 27.7 L Assessment and Plan - Assessment and Plan 1) Left Periprosthetic Femoral Shaft Fx s/p revision IMN with ORIF - POD 2 -50%WB -begin daily dressing changes today with xeroform/4x4/tape. ok to transition to xeroform/primapore if minimal drainage -DVT prophylaxis -CM for DC planning. will likely require SNF -will order trapeze for bed today -ortho cleared for DC to SNF -f/u with [facility] or [facility] in 2 weeks [facility] Prescription Drug Monitoring Database has been queried and verified prior to prescribing the controlled substance. Acute pain exception. This patient has normal, predicted, physiological, and time limited response to an adverse mechanical stimulus associated with surgery, trauma, or acute illness as described in my notes. There is a lack of alternative treatment options other than to include the prescribed narcotic treatment for this condition.
[2018-02-14] MEDS: Calcium/Vitamin D 250/125 MG Tablet PO SCH ×2 (08:25→12:13)
[2018-02-14] MEDS: Senna/Docusate Sodium 8.6/50 MG Tablet PO SCH (08:25)
--- NOTE | 2018-02-14 11:20 | P.DS ---
Date of admission: 02/11/18 04:44 Primary care physician: Jose Rodas DO Brief History from admission: patient is an 87 year old male who presents to the [facility] emergency department via evac, s/p fall striking is left side. The patient is recently postop after having a repair of an intertrochanteric femur fracture on that left side early this January. Patient was found to be having runs of V tach in ambulance. He denied any Cp, SOB more than baseline, Palpations or pressure. Ortho and cardiology has been consulted. DS: Diagnosis - Discharge Diagnosis (1) Fracture of femur Status: Acute (2) V tach Status: Acute (3) CAD (coronary atherosclerotic disease) Status: Chronic DS: Medications - Discharge Medications Prescriptions: hydrocodone-acetaminophen [[place]] 1 tab PO Q4H #40 tab rivaroxaban [Xarelto] 10 mg PO DAILY #14 tab DS: Summary Hospital Course: patient is an 87 year old male who presents to the [facility] emergency department via evac, s/p fall striking is left side. The patient is recently postop after having a repair of an intertrochanteric femur fracture on that left side early this January. Patient was found to be having runs of V tach in ambulance. He was seen by cardiology and cleared for surgery, underwent revision IMN left femur on 02/12/18, without difficulty, Denies any further chest pain, cardilogy signed off, he is cleared for DC to Inpatient rehab. - Time Spent with Patient Total time spent providing and/or coordinating discharge services: 25 Less than 30 minutes - Quality: AMI Clinical Trial Participant: No - Quality: Stroke Symptom Onset Unknown: No - Quality: VTE Is this test being ordered to rule out VTE?: No Deep Vein Thrombosis/Pulmonary Embolism Present on Admission: No Exam Vital signs: Vital Signs 02/13/18 12:00 02/13/18 12:57 02/13/18 14:00 Temperature 98.1 F Pulse Rate 78 72 78 Respiratory Rate 16 Blood Pressure 148/76 H Pulse Oximetry 98 02/13/18 14:08 02/13/18 15:12 02/13/18 15:36 Temperature 98.4 F Pulse Rate 72 63 76 Respiratory Rate 16 Blood Pressure 145/53 H Pulse Oximetry 98 02/13/18 16:54 02/13/18 18:11 02/13/18 18:26 Temperature 97.6 F Pulse Rate 92 H 75 Respiratory Rate 16 16 18 Blood Pressure 127/57 L Pulse Oximetry 96 02/13/18 20:00 02/13/18 21:46 02/14/18 00:35 Temperature 97.5 F L 97.4 F L Pulse Rate 75 85 Respiratory Rate 16 16 17 Blood Pressure 155/60 H 126/76 Pulse Oximetry 98 94 L 02/14/18 05:12 02/14/18 08:12 02/14/18 10:40 Temperature 97.4 F L 97.8 F Pulse Rate 52 L 76 Respiratory Rate 16 20 18 Blood Pressure 125/65 137/60 Pulse Oximetry 94 L 98 Intake & Output 02/13/18 02/14/18 02/14/18 18:59 06:59 18:59 Intake Total 380 / 380 Output Total 250 / 250 Balance 130 / 130 Weight 82.6 kg 66.7 kg Intake: Oral 380 / 380 Output: Urine 250 / 250 Stool 0 / 0 Other: Date of Last Bowel Movement 02/10/18 02/12/18 02/12/18 - Constitutional no acute distress - Routine HEENT Exam Eye: Present: PERRL ENT: Present: mucous membranes moist - Routine Neck Exam Present: supple - Routine Respiratory Exam Present: CTA bilaterally - Routine Cardiovascular Exam Present: S1, S2 - Routine Abdominal Exam Present: soft, normoactive bowel sounds - Routine Extremities Exam Present: edema, pulses intact Comments: LLE - Routine Skin Exam Present: dry, warm Comments: Dressing to left hip C/D/I - Routine Neurological Exam Present: alert, oriented X3 Results Procedures completed during hospitalization: N/a - Impressions ITS Impressions Chest X-Ray 02/11/18 02:46 CONCLUSION: Central pulmonary vascular congestion. Pelvis X-Ray 02/11/18 02:46 CONCLUSION: No evidence of acute fracture. Tibia/Fibula X-Ray 02/11/18 02:46 CONCLUSION: No evidence of fracture of the lower leg. Femur X-Ray 02/12/18 00:00 CONCLUSION: Status post open reduction internal fixation. Discharge Plan - Discharge Disposition Patient Disposition: Discharge to SNF - Discharge Condition Condition: Fair - Discharge Order Discharge Orders: Discharge Order (Routine); Ordered 02/14/18 Ordered By: Ramona Olivas Orthopedic Clear for Discharge (Routine); Ordered 02/14/18 Ordered By: Paresh Hardy ED Use Only Admit Order (Routine); Ordered 02/11/18 Ordered By: Jonelle Javier - Physicians Team Primary Care Provider: Jose Rodas Attending Provider: Jose Rodas Other Providers: Dilan Mcallister MD ; [facility],Insurance ; Tyler Marquez, DO ; Kim Mills MD
== END 2018-02-14 15:06 ==
LOC: NEPC 02:27 → NEDA 04:44 → N07 06:26 → N03 08:49 → HCIS 02-12 11:51 → N06 02-13 18:04
PROVIDERS: ADMIT Family Medicine; ATTEND Family Medicine